=== PATIENT | female | born 1995 | race Caucasian/White ===

== ENCOUNTER 2025-04-11 14:24 | Outpatient (CLI) | payer BC, SELFPAY ==
--- OUTSIDE RECORDS SUMMARY | 2024-12-27 08:45 | XMS_ITS ---
Author Organization [facility] [employer] [facility] Address [address] [facility] [address] [facility] 201 [place] [address] Care Team Providers Care Wheelchair Rental Clerk Name Role Phone OmayraVenturaAnna Unavailable [phone] REASON FOR VISIT follow-up, R/S from 12/20 Social History Sex Assigned At : Social History Observation Description Sex Assigned At Female Encounters Encounter Location Date Provider Diagnosis [facility] [employer] [place] [id number] [facility] [address] [facility] 201 [place] [address] 12/27/2024 Anna Cutler Plan Of Treatment Next Appt Details Provider Name:Anna lemon, 06/29/2025 08:00:00 AM, [address], [facility] [address], [place], [address], Progress Notes * HERMINIO CHRISTIAN KDOB:[birth year] (30 yo F)Acc No.[id number]:12/27/2024 Patient: HERMINIO MIRELES Provider: Edison Cutler :1995 A ge:29 Y S ex:Female Date:12/27/2024 Address:[address] [place], [place] [id number] Subjective: * Chief Complaints: * f ollow-up, R/S from 12/20 * Electronic signature of Wong Cutler on 04/11/2025 at 02:45 PM MORTAR WORKER Sign off status: Pending * Provider: Edison Cutler Date: 0 12/27/2024 Generated for Sacha chavira/Faxing/eTransmitting on: 1 02:45 PM MORTAR WORKER
--- OUTSIDE RECORDS SUMMARY | 2025-01-31 03:15 | XMS_ITS ---
Author Organization [facility] Address [facility] 162 [facility] 201 [place] [address] Care Team Providers Care Community Health Nursing Director Name Role Phone OmayraVenturaAnna Unavailable [phone] REASON FOR VISIT 1 month f/u Social History Sex Assigned At : Social History Observation Description Sex Assigned At Female Encounters Encounter Location Date Provider Diagnosis [facility] [employer] [address] [facility] 201 [place] [address] 01/31/2025 Anna Cutler Plan Of Treatment Next Appt Details Provider Name:Anna lemon, 06/29/2025 08:00:00 AM, [address], [facility] [address], [place], [address], Progress Notes * HERMINIO CHRISTIAN KDOB:[birth year] (30 yo F)Acc No.[id number]:01/31/2025 Patient: HERMINIO MIRELES Provider: Edison Cutler :1995 A ge:29 Y S ex:Female Date:01/31/2025 Address:[address] [place], [place] [id number] Subjective: * Chief Complaints: * 1 month f/u Billing Information: * Procedure Codes: * Electronic signature of Wong Cutler on 04/11/2025 at 02:45 PM BAG MENDER Sign off status: Pending * Provider: Edison Cutler Date: Generated for Sacha chavira/Kun/eTariadnasmitting on: 02:45 PM BAG MENDER
--- OUTSIDE RECORDS SUMMARY | 2025-02-04 09:45 | XMS_ITS ---
Author Organization [facility] [employer] [facility] Address [facility] [address] [facility] 201 [place] [address] Care Team Providers Care Therapeutic Recreation Assistant Name Role Phone OmayraVenturaAnna Unavailable [phone] REASON FOR VISIT 1 month f/u Social History Sex Assigned At : Social History Observation Description Sex Assigned At Female Encounters Encounter Location Date Provider Diagnosis [facility] [employer] [address] [facility] 201 [place] [address] 02/04/2025 Anna Cutler Plan Of Treatment Next Appt Details Provider Name:Anna lemon, 06/29/2025 08:00:00 AM, [address], [facility] [address], [place], [address], Progress Notes * HERMINIO CHRISTIAN KDOB:[birth year] (30 yo F)Acc No.[id number]:02/04/2025 Patient: HERMINIO MIRELES Provider: Edison Cutler :1995 A ge:29 Y S ex:Female Date:02/04/2025 Address:[address] [place], [place] [phone] Subjective: * Chief Complaints: * 1 month f/u Billing Information: * Procedure Codes: * Electronic signature of Wong Cutler on 04/11/2025 at 02:45 PM PRENATAL NURSE Sign off status: Pending * Provider: Edison Cutler Date: Generated for Sacha chavira/Kun/eTariadnasmitting on: 02:45 PM PRENATAL NURSE
[2025-04-11] VITALS (22 sets, daily range): BP systolic 134–163; BP diastolic 84–99; PULSE 85–117; TEMP 36.7; O2SAT 100
--- OUTSIDE RECORDS SUMMARY | 2025-04-11 14:46 | XMS_ITS | Patient Health Record ---
Author Organization [facility] Address [address] [facility] [address] [place] [address] Care Team Providers Care Lead Javascript Engineer Name Role Phone Anna Cutler Unavailable [phone] Allergies No Known Allergies Results Component Value Reference Range Notes UDT Reviewed date:11/25/2024 06:33:48 PM Interpretation: Performing Lab: Notes/Report: Amphetamine (AMP) n 0 - 1000 ng/ml Buprenorphine (BUP) n 0 - 10 ng/ml Oxazepam (BZO) n 0 - 300 ng/ml Cocaine (JAYDE) n 0 - 300 ng/ml Methamphetamine (mAMP) n 0 - 300 ng/ml Methylenedioxymethamphetamine (MDMA) n 0 - 500 ng/ml Morphine (MOP) n 0 - 25 ng/ml Methadone (MTD) n 0 - 300 ng/ml Oxycodone (OXY) n 0 - 300 ng/ml THC y 0 - 50 ng/ml x n 0 - 1000 ng/ml x n 0 - 1000 ng/ml x n 0 - 300 ng/ml x n 0 - 300 ng/ml Reason For Referral No Information Medications Medication SIG (Take, Route, Frequency, Duration) Notes Start Date End Date Status lamoTRIgine 100 MG Tablet 1 tablet Oral Once a day; Duration: 30 days 03/30/2025 Active Sertraline HCl 100 MG Tablet 1 tablet Oral Once a day; Duration: 30 days 03/30/2025 Active Immunizations Vaccine Route Administration Date Status Commmelody freeman Pfizer Biontech Covid-19 Vac cine 2nd dose Unknown 08/31/2020 Administered Pfizer Biontech Covid-19 Vac cine 2nd dose Unknown 09/21/2020 Administered COVID-19 (SARS-COV-2) vaccin e, unspecified Unknown 04/06/2021 Administered Social History Tobacco Use: Social History Observation Description Date Details (start date - stop date) Former Smoker NA - NA Sex Assigned At : Social History Observation Description Sex Assigned At Female Social History Miscellaneous: Social Info Question Answer Notes Advance Care Planning Are you your own decision-maker Yes Do you have Power of Multiple Tube Winding Machine Operator for Health or [facility] yoshi? No Safety issues: Do you feel safe at home? Yes Are there any firearms in the house? No Household: Social Info Question Answer Notes Household Marital status: Number of adults in household: 2 Drug/Alcohol: Social Info Question Answer Notes Drugs Have you used drugs other than those for medical reasons in the past 12 months? Yes Marijuana? Yes Caffeine Intake: 1-2 cups per day Tobacco Use: Social Info Question Answer Notes Tobacco Control (Standard) Tobacco use: Former smoker Additional Findings: Tobacco user e-cigarette Additional Details Category Social Info Options Details Miscellaneous: Occupation: career counse rafael at [employer] Social History Migrated Social History Alcohol Intake: Occasional 06/18/2021,Tobacco Years: Current every day smoker 06/18/2021,Smoking Status: 2 06/02/2023 Drug/Alcohol: Do you smoke marijuana? Yes Do you drink alcohol? Occasional ly Section Notes: Social History Substance Use Do you or have you ever smoked tobacco?: Current every day smoker How many years have you smoked tobacco?: 2 At what age did you start smoking tobacco?: 24 How much tobacco do you smoke?: None Do you or have you ever used any other forms of tobacco or nicotine?: Yes Do you or have you ever used e-cigarettes or vape?: Current user of electronic cigarettes What was the date of your most recent tobacco screening?: 06/02/2023 Has tobacco cessation counseling been provided?: No On what date was tobacco cessation counseling provided?: 03/18/2022 What is your level of alcohol consumption?: Occasional How many years have you consumed alcohol?: 3 Have you ever been counseled for unhealthy alcohol use?: No If you are , what was your level of alcohol consumption prior to ?: None Do you use any illicit or recreational drugs?: Yes Which illicit or recreational drugs have you used?: Marijuana How many years have you used illicit or recreational drugs?: 3 Have you used IV drugs?: No What is your level of caffeine consumption?: Heavy Education and Occupation What is the highest grade or level of school you have completed or the highest degree you have received?: Master's degree (e.g., MA, MS, Kanika, MEd, 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, [employer]) Are you currently employed?: Yes Who is your employer?: [employer] Marriage and Sexuality What is your relationship status?: Domestic partner Are you sexually active?: Yes Do you use protection during sex?: No How many children do you have?: 0 Home and Environment Are you a caregiver?: No What type of child support specialist do you use?: None Do you have any pets?: Yes (Notes: 1 cat) Do you have smoke and carbon monoxide detectors in your home?: Yes Are you passively exposed to smoke?: No Are there any smokers in your house?: No Are there any guns present in your home?: No Diet and Exercise What type of diet are you following?: Regular What is your exercise level?: Occasional How many days of moderate to strenuous exercise, like a brisk walk, did you do in the last 7 days?: 2 On those days that you engage in moderate to strenuous exercise, how many minutes, on average, do you exercise?: 60 Lifestyle Do you feel stressed (tense, restless, nervous, or anxious, or unable to sleep at night)?: Very much Do you use your seat belt or car seat routinely?: Yes Advance Directive Do you have an advance directive?: No Do you have a medical power of assistant attorney general?: No Public Health and Travel Have you been to an area known to be high risk for COVID-19?: No Activities of Daily Living Are you able to care for yourself?: Yes Are you blind or do you have difficulty seeing?: No Are you deaf or do you have serious difficulty hearing? : No Do you have difficulty concentrating, remembering or making decisions?: Yes Do you have difficulty walking or climbing stairs?: No Do you have difficulty dressing or bathing?: No Do you have difficulty doing errands alone?: No Are you able to walk?: Yes: walks without restrictions Do you have transportation difficulties?: Yes Gender Identity and LGBTQ Identity Gender identity: Identifies as Female Assigned sex at : Female Pronouns: she/her First name used: Isabella Sexual orientation: Straight or heterosexual Social History Substance Use Do you or have you ever smoked tobacco?: Current every day smoker How many years have you smoked tobacco?: 2 At what age did you start smoking tobacco?: 24 How much tobacco do you smoke?: None Do you or have you ever used any other forms of tobacco or nicotine?: Yes Do you or have you ever used e-cigarettes or vape?: Current user of electronic cigarettes What was the date of your most recent tobacco screening?: 02/02/24, just vaping Has tobacco cessation counseling been provided?: No On what date was tobacco cessation counseling provided?: 02/02/24 What is your level of alcohol consumption?: Occasional How many years have you consumed alcohol?: 3 Have you ever been counseled for unhealthy alcohol use?: No If you are , what was your level of alcohol consumption prior to ?: None Do you use any illicit or recreational drugs?: Yes Which illicit or recreational drugs have you used?: Marijuana How many years have you used illicit or recreational drugs?: 3 Have you used IV drugs?: No What is your level of caffeine consumption?: Heavy Education and Occupation What is the highest grade or level of school you have completed or the highest degree you have received?: Master's degree (e.g., MA, MS, Kanika, MEd, 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, [employer]) Are you currently employed?: Yes Who is your employer?: [employer] Marriage and Sexuality What is your relationship status?: Domestic partner Are you sexually active?: Yes Do you use protection during sex?: No How many children do you have?: 0 Home and Environment Are you a caregiver?: No Do you have any pets?: Yes (Notes: 1 cat) Do you have smoke and carbon monoxide detectors in your home?: Yes Diet and Exercise What type of diet are you following?: Regular What is your exercise level?: Occasional How many days of moderate to strenuous exercise, like a brisk walk, did you do in the last 7 days?: 2 On those days that you engage in moderate to strenuous exercise, how many minutes, on average, do you exercise?: 60 Advance Directive Do you have an advance directive?: No Do you have a medical power of assistant attorney general?: No Activities of Daily Living Are you able to care for yourself?: Yes Gender Identity and LGBTQ Identity Gender identity: Identifies as Female Assigned sex at : Female Pronouns: she/her First name used: Isabella Sexual orientation: Straight or heterosexual Problems Problem Type SNOMED Code ICD Code Onset Dates Problem Status W/U Status Risk Notes Problem Recurrent major depression in full remission (73093569) Major depressive disorder, recurrent, in full remission (F33.42) Active confirmed Problem Generalized anxiety disorder (53426611) Generalized anxiety disorder (F41.1) 4 Active confirmed Problem Insomnia disorder related to another mental disorder (87460903) Insomnia due to other mental disorder (F51.05) 4 Active confirmed Problem Obsessive-compul sive disorder (840404649) Obsessive-compu lsive disorder, unspecified (F42.9) 4 Active confirmed Problem Nondependent cannabis abuse (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) Marijuana use (F12.90) Active confirmed Problem Tobacco use (676399262) Nicotine use (Z72.0) Active confirmed Problem Second trimester (54380657) Second trimester (Z34.92) Active confirmed Vital Signs Heart Rate 83 /min 01/10/2025 Height-cm 160.02 cm 03/30/2025 Blood pressure diastolic 78 mm Hg 03/30/2025 Weight-kg 55.79 kg 03/30/2025 Height 63 in 03/30/2025 Blood pressure systolic 128 mm Hg 03/30/2025 Weight 123 lbs 03/30/2025 BMI 21.79 kg/m2 03/30/2025 Encounters Encounter Location Date Provider Diagnosis [facility] [place] [address] [address] [facility] [address] [address] 05/31/2024 Anna Cutler Obsessive-compulsive disorder, unspecified F42.9 ; Major depressive disorder, recurrent, in full remission F33.42 ; Generalized anxiety disorder F41.1 and Insomnia due to other mental disorder F51.05 [facility] [address] [address] 08/23/2024 Anna Cutler [facility] [place] [address] [address] 08/30/2024 Anna Cutler Generalized anxiety disorder F41.1 ; Obsessive-compulsive disorder, unspecified F42.9 ; Major depressive disorder, recurrent, in full remission F33.42 ; Insomnia due to other mental disorder F51.05 ; Marijuana use F12.90 ; Nicotine use Z72.0 ; Negative depression screening Z13.31 and Encounter for screening for cardiovascular disorders Z13.6 [facility] [address] [place] [address] [place] [address] 11/22/2024 Annasundeep Cutler Generalized anxiety disorder F41.1 ; Major depressive disorder, recurrent, in full remission F33.42 ; Obsessive-compulsive disorder, unspecified F42.9 ; Less than 8 weeks gestation of Z3A.01 and Insomnia due to other mental disorder F51.05 [facility] [facility] [address] [place] [address] 12/20/2024 Annasundeep Cutler [facility] [address] [place] [address] [place] [address] 01/10/2025 Anna Cesarjagjit Major depressive disorder, recurrent, in full remission F33.42 ; Obsessive-compulsive disorder, unspecified F42.9 ; Insomnia due to other mental disorder F51.05 ; Generalized anxiety disorder F41.1 and First trimester Z34.91 [facility] [facility] [address] [place] [address] 03/30/2025 Anna Cutler Major depressive disorder, recurrent, in full remission F33.42 ; Obsessive-compulsive disorder, unspecified F42.9 ; Generalized anxiety disorder F41.1 ; Second trimester Z34.92 and Insomnia due to other mental disorder F51.05 Assessments Encounter Date Diagnosis (ICD Code) Assessment Notes Treatment Notes Treatment Clinical Notes Section Notes 05/31/2024 Obsessive-compuls evon disorder, unspecified (ICD-10 - F42.9) Anxiety - Mild anxiety related to work and social media - Sertraline 250 mg daily effective Plan: - Continue sertraline 250 mg daily - Encourage stress management techniques - Consider limiting social media exposure Mood stability - Good overall mood, no depression - Lamotrigine 100 mg daily effective Plan: - Continue lamotrigine 100 mg daily - Monitor mood stability during follow-ups Sleep - Satisfactory sleep with occasional trazodone use Plan: - Continue trazodone 50mg, take 1/2 to 1 tablet at bedtime - Encourage good sleep hygiene Substance use - Daily coffee, occasional alcohol, vaping, and marijuana use Plan: - Monitor substance use - Consider reducing substances that may affect anxiety or sleep - Follow-up appointment in 3-4 months, sooner if concerns arise 08/30/2024 Generalized anxiety disorder (ICD-10 - F41.1) 08/30/2024 Obsessive-compuls evon disorder, unspecified (ICD-10 - F42.9) 11/22/2024 Major depressive disorder, recurrent, in full remission (ICD-10 - F33.42) 11/22/2024 Generalized anxiety disorder (ICD-10 - F41.1) 01/10/2025 Major depressive disorder, recurrent, in full remission (ICD-10 - F33.42) 01/10/2025 Obsessive-compuls evon disorder, unspecified (ICD-10 - F42.9) 03/30/2025 Major depressive disorder, recurrent, in full remission (ICD-10 - F33.42) 03/30/2025 Obsessive-compuls evon disorder, unspecified (ICD-10 - F42.9) 03/30/2025 Generalized anxiety disorder (ICD-10 - F41.1) 01/10/2025 Insomnia due to other mental disorder (ICD-10 - F51.05) 11/22/2024 Obsessive-compuls evon disorder, unspecified (ICD-10 - F42.9) 08/30/2024 Major depressive disorder, recurrent, in full remission (ICD-10 - F33.42) 05/31/2024 Major depressive disorder, recurrent, in full remission (ICD-10 - F33.42) Anxiety - Mild anxiety related to work and social media - Sertraline 250 mg daily effective Plan: - Continue sertraline 250 mg daily - Encourage stress management techniques - Consider limiting social media exposure Mood stability - Good overall mood, no depression - Lamotrigine 100 mg daily effective Plan: - Continue lamotrigine 100 mg daily - Monitor mood stability during follow-ups Sleep - Satisfactory sleep with occasional trazodone use Plan: - Continue trazodone 50mg, take 1/2 to 1 tablet at bedtime - Encourage good sleep hygiene Substance use - Daily coffee, occasional alcohol, vaping, and marijuana use Plan: - Monitor substance use - Consider reducing substances that may affect anxiety or sleep - Follow-up appointment in 3-4 months, sooner if concerns arise 05/31/2024 Generalized anxiety disorder (ICD-10 - F41.1) Anxiety - Mild anxiety related to work and social media - Sertraline 250 mg daily effective Plan: - Continue sertraline 250 mg daily - Encourage stress management techniques - Consider limiting social media exposure Mood stability - Good overall mood, no depression - Lamotrigine 100 mg daily effective Plan: - Continue lamotrigine 100 mg daily - Monitor mood stability during follow-ups Sleep - Satisfactory sleep with occasional trazodone use Plan: - Continue trazodone 50mg, take 1/2 to 1 tablet at bedtime - Encourage good sleep hygiene Substance use - Daily coffee, occasional alcohol, vaping, and marijuana use Plan: - Monitor substance use - Consider reducing substances that may affect anxiety or sleep - Follow-up appointment in 3-4 months, sooner if concerns arise 08/30/2024 Insomnia due to other mental disorder (ICD-10 - F51.05) 11/22/2024 Less than 8 weeks gestation of (ICD-10 - Z3A.01) 01/10/2025 Generalized anxiety disorder (ICD-10 - F41.1) 03/30/2025 Second trimester (ICD-10 - Z34.92) 03/30/2025 Insomnia due to other mental disorder (ICD-10 - F51.05) 01/10/2025 First trimester (ICD-10 - Z34.91) 11/22/2024 Insomnia due to other mental disorder (ICD-10 - F51.05) 08/30/2024 Marijuana use (ICD-10 - F12.90) 05/31/2024 Insomnia due to other mental disorder (ICD-10 - F51.05) Anxiety - Mild anxiety related to work and social media - Sertraline 250 mg daily effective Plan: - Continue sertraline 250 mg daily - Encourage stress management techniques - Consider limiting social media exposure Mood stability - Good overall mood, no depression - Lamotrigine 100 mg daily effective Plan: - Continue lamotrigine 100 mg daily - Monitor mood stability during follow-ups Sleep - Satisfactory sleep with occasional trazodone use Plan: - Continue trazodone 50mg, take 1/2 to 1 tablet at bedtime - Encourage good sleep hygiene Substance use - Daily coffee, occasional alcohol, vaping, and marijuana use Plan: - Monitor substance use - Consider reducing substances that may affect anxiety or sleep - Follow-up appointment in 3-4 months, sooner if concerns arise 08/30/2024 Nicotine use (ICD-10 - Z72.0) 08/30/2024 Negative depression screening (ICD-10 - Z13.31) 08/30/2024 Encounter for screening for cardiovascular disorders (ICD-10 - Z13.6) 08/30/2024 Vipul Christian, female, presents for follow-up of depression, anxiety, and obsessive-compuls evon disorder (OCD), reporting good mood control and reduced anxiety with current medication regimen. Major Depressive Disorder Assessment: Patient reports depression has been well-controlled with lamotrigine 100 mg. She denies any current suicidal thoughts. Mood has been stable, and she notes improved ability to manage stress, particularly related to travel plans which would have previously caused significant distress. Plan: - Continue lamotrigine 100 mg daily Generalized Anxiety Disorder Assessment: Patient reports anxiety is well-controlled. She denies experiencing panic attacks and states anxiety has not been problematic recently. She demonstrates improved ability to manage potentially stressful situations, such as traveling alone for training. Plan: - Continue sertraline 100 mg, 2.5 tablets daily Obsessive-Compuls evon Disorder Assessment: Patient reports OCD symptoms, primarily hand washing, are currently well-controlled. She notes that symptoms typically improve during summer months but worsen during cold season, leading to cracked hands. Plan: - Continue current treatment - Follow up in 3 months (November) to reassess symptoms, particularly in anticipation of cold season Insomnia Assessment: Patient reports occasional difficulty falling asleep but states sleep disturbances are generally well-managed with as-needed trazodone. Plan: - Continue trazodone 50 mg at bedtime as needed for sleep Substance Use Assessment: Patient reports vaping, social alcohol use, and occasional cannabis use on weekends. She denies other drug use. Caffeine intake is reported as low, with one coffee per day. Plan: - Continue to monitor substance use at follow-up appointments 11/22/2024 Vipul Christian, a patient at 6 weeks gestation, presents for medication management of depression, anxiety, and possible bipolar disorder. Medication management in Assessment: Patient is currently on sertraline 250 mg daily (2.5 tablets) for depression, anxiety, and OCD tendencies. She is also taking lamotrigine for mood stabilization due to family history of bipolar disorder and anger issues when initially starting sertraline. Trazodone was previously prescribed for sleep but has not been used recently. Patient reports good mood and anxiety control with current regimen. Given the new , medication adjustments are warranted to minimize exposure while maintaining symptom management. Plan: - Decrease sertraline to 200 mg PO daily - Continue lamotrigine - Discontinue trazodone - Follow up in 4 weeks to reassess medication efficacy and tolerability - Patient to inform provider of any feedback from OB appointment on 12/07/2024 Assessment: Patient reports recent discovery of , estimated at 6 weeks gestation based on jairo calculation. First OB appointment scheduled for 12/07/2024. Patient has made appropriate lifestyle changes, including switching to decaf coffee and abstaining from alcohol and drug use. Plan: - Attend scheduled OB appointment on 12/07/2024 - Continue abstinence from alcohol, drugs, and smoking - Maintain decaf coffee consumption Medical Decision Making Isabella Christian is a patient at 6 weeks gestation with a history of depression, anxiety, and OCD, currently stable on sertraline and lamotrigine. The patient's mood and anxiety have been well-controlled, with only minor anxiety reported during the initial discovery of . Given the , medication adjustment is warranted. The decision to taper sertraline first, rather than lamotrigine, is based on the higher dose of sertraline and its potential impact on the developing fetus. The goal is to reduce sertraline to 200mg daily and reassess. The lamotrigine, initially added due to family history of bipolar disorder and mood instability with sertraline alone, will be evaluated for potential tapering after the sertraline adjustment. This approach balances the need for mood stabilization with minimizing medication exposure. The patient's history of smoking cessation, alcohol abstinence, and switch to decaf coffee demonstrate positive health behaviors during . 01/10/2025 Other Isabella Christian, female, 11 weeks , with history of OCD and anxiety, presenting for routine follow-up. Depression Assessment: Patient reports mood as good as it can be. Denies depresion or suicidal thoughts. Mood appears stable on current medication regimen. Plan: - Continue lamotrigine 100 mg daily - Decrease sertraline to 1.5 tablets daily - Monitor for any changes in mood or anxiety symptoms Anxiety and Obsessive-Compuls evon Disorder (OCD) Assessment: Patient reports OCD tendencies have been good recently, despite a brief illness a couple of weeks ago which mildly exacerbated symptoms. Overall, symptoms appear to be well-controlled on current medication regimen. Plan: - Continue current medication management as outlined Assessment: Patient is 11 weeks , confirmed by recent OB checkup. Reports frequent urination affecting sleep and increased appetite. Experiences occasional brief nausea. OB reports everything sounded good during recent checkup. Plan: - Continue care with OB - Monitor for -related symptoms Sleep Disturbance Assessment: Patient reports sleep disturbance primarily due to frequent urination related to . No difficulty falling asleep reported. Plan: - Monitor sleep patterns - No specific interventions at this time as disturbance is -related Medical Decision Making Isabella Christian is a female at 11 weeks gestation with a history of OCD, presenting for routine follow-up. The patient reports overall stable mood and well-controlled OCD symptoms, with no significant anxiety or suicidal ideation. Sleep disturbances are attributed to -related frequent urination rather than psychiatric factors. Recent OB checkup was reassuring with no concerns raised about current psychiatric medications. Given the patient's stable psychiatric status and desire to potentially reduce medication, a modest dose reduction in sertraline from two tablets to one and a half tablets daily was agreed upon. This decision balances the need for continued symptom management with the goal of minimizing medication exposure during . The gradual nature of this reduction aims to mitigate the risk of symptom recurrence or withdrawal effects. 03/30/2025 Other 22-week female with history of anxiety, OCD, and major depressive disorder in remission, currently doing well on sertraline and lamotrigine with desire to reduce sertraline dose. Anxiety and OCDAssessment: Patient is currently stable on sertraline 150 mg daily (1.5 tablets) with good symptom control. She reports feeling good mentally and mood-kennedy, without excessive anxiety or feeling overwhelmed. No suicidal ideation present. Patient expressed interest in reducing medication dose while maintaining stability.Plan:- Reduce sertraline from 150 mg daily (1.5 tablets) to 100 mg daily (1 tablet)- Patient instructed to return to 150 mg daily and contact provider if mood or anxiety changes occur- 30-day supply with 2 refills prescribed to [facility] Major depressive disorder in remissionAssessme nt: Patient remains stable on lamotrigine 100 mg daily with good mood control. No depressive symptoms reported and patient describes feeling good overall.Plan:- Continue lamotrigine 100 mg daily at 22 weeksAssessment: Patient is 22 weeks with a girl, progressing well through second trimester. Reports minimal -related symptoms, no morning sickness, good appetite, and adequate energy levels. Baby is growing at average rate. Some discomfort with sleep positioning due to weight changes. OB provider is aware of psychiatric medications. Patient experiencing some anxiety about delivery but overall doing well.Plan:- Continue care with OB- Maintain current psychiatric medications as evidence supports safety during Follow-up appointment in approximately 12 weeks, ideally around 36 weeks gestation if schedule permits, available Wednesdays only. If unable to schedule during third trimester, plan follow-up. Medical Decision MakingIsabella Christian is a female at 22 weeks gestation presenting for routine psychiatric follow-up during . The patient reports stable mood and anxiety symptoms on current regimen of sertraline and lamotrigine, with no concerning psychiatric symptoms including suicidal ideation. Given her stable clinical presentation and expressed desire to minimize medication exposure during , the decision was made to reduce sertraline from 1.5 tablets to 1 tablet daily while maintaining lamotrigine at current dose. This approach balances the need for psychiatric stability with safety considerations, as both medications have established safety profiles in and the patient's OB provider is aware of the psychiatric medication regimen. The patient's stable mood, adequate sleep, and absence of anxiety symptoms support this conservative medication adjustment approach. 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
[2025-04-11 15:28] LABS: Add Urine Microscopic? YES; Appearance Urine Clear (Clear); Glucose Urine UA Negative (Negative); Leukocyte Esterase Ur Trace LEU/UL (Negative); Nitrate Urine Negative (Negative); Non Pathogenic Casts 0-2; Specific Grav Ur 1.007 (1.001-1.035); Total Protein Urine Random 14 mg/dL; Ur Ttl Prot Creatinine Ratio 0.51 mg/mg (0-0.20)
[2025-04-11 15:41] LABS: Hematocrit 40.1 % (37.0-47.0); Hemoglobin 13.7 g/dL (12.0-15.0); Immature Granulocyte Percent A 1.1 % (0-0.5); Lymphocytes Absolute Auto 2.41 K/mm3 (0.9-3.2); Mean Corpuscular HGB Conc 34.2 g/dl (32-36); Mean Corpuscular Hemoglobin 31.1 pg (26-34); Mean Corpuscular Volume 90.9 fl (80-100); Nucleated Red Blood Cells Absolute Auto 0.000 K/mm3 (0.0-0.012); Nucleated Red Blood Cells Perc 0.0 % (0.0-0.2); Platelet Count Result 266 k/mm3 (150-375); Red Blood Count 4.41 M/mm3 (4.2-5.4); White Blood Count 14.4 K/mm3 (4.5-10.0)
[2025-04-11 15:54] LABS: Alanine Aminotransferase 17 U/L (6-35); Albumin Level 3.6 g/dL (3.5-5.1); Alkaline Phosphatase 107 U/L (38-126); Anion Gap 6 mmol/L (4-12); Aspartate Amino Transferase 22 U/L (14-36); Bilirubin,Total 0.5 mg/dL (0.2-1.3); Blood Urea Nitrogen 7 mg/dL (7-17); Calcium 8.9 mg/dL (8.4-10.2); Carbon Dioxide 23 mmol/L (22-30); Chloride 107 mmol/L (98-107); Estimated Glomerular Filt Rate > 60; Glucose 80 mg/dL (65-110); Potassium 3.4 mmol/L (3.4-5.0); Sodium 136 mmol/L (137-145); Total Protein 7.1 g/dL (6.3-8.2); Uric Acid 3.3 mg/dL (2.5-7.5)
--- NOTE | 2025-04-11 16:10 | PC.NURSE ---
This RN called Dr. Hauser. Informed of elevated BPs, lab results, and FHT. states pt may go home at this time and complete a 24 h urine specimen to be completed. RN repeated orders back to confirm.
== END 2025-04-11 16:28 | disposition home or self-care (01) ==
LOC: ANHOBOP 14:33 → ANHOBPP 14:39
PROVIDERS: Visit Provider Obstetrics & Gynecology
DX: O13.9 Gestational [pregnancy-induced] hypertension without significant proteinuria, unspecified trimester (principal); Z3A.00 Weeks of gestation of pregnancy not specified
CPT/HCPCS: 36415; 80053; 81001; 82570; 84156; 84550; 85025; 99199

== ENCOUNTER 2025-04-12 20:35 | Outpatient (NON) | payer BC, SELFPAY ==
--- OUTSIDE RECORDS SUMMARY | 2024-12-27 08:45 | XMS_ITS ---
Author Organization [facility] Address [address] [facility] [address] [facility] 201 [place] [address] Care Team Providers Care Hvac Refrigeration Technician Name Role Phone OmayraVenturaAnna Unavailable [phone] REASON FOR VISIT follow-up, R/S from 12/20 Social History Sex Assigned At : Social History Observation Description Sex Assigned At Female Encounters Encounter Location Date Provider Diagnosis [facility] [email or web address] [place] [address] [facility] [address] [facility] [address] [place] [address] 12/27/2024 Anna Cutler Plan Of Treatment Next Appt Details Provider Name:Anna lemon, 06/29/2025 08:00:00 AM, [address], [facility] [address], [place], [address], Progress Notes * HERMINIO CHRISTIAN KDOB:[birth year] (30 yo F)Acc No.[id number]:12/27/2024 Patient: HERMINIO MIRELES Provider: Edison Cutler :1995 A ge:29 Y S ex:Female Date:12/27/2024 Address:[address] [place], [place] [id number] Subjective: * Chief Complaints: * f ollow-up, R/S from 12/20 * Electronic signature of Wong Cutler on 04/12/2025 at 08:47 PM SIGNALS COLLECTION TECHNICIAN Sign off status: Pending * Provider: Edison Cutler Date: 0 12/27/2024 Generated for Sacha chavira/Faxing/eTransmitting on: 1 08:47 PM SIGNALS COLLECTION TECHNICIAN
--- OUTSIDE RECORDS SUMMARY | 2025-01-31 03:15 | XMS_ITS ---
Author Organization [facility] Address [facility]6 [facility] [address] [facility] 201 [place] [address] Care Team Providers Care Commercial Floor Covering Installer Name Role Phone OmayraVenturaAnna Unavailable [phone] REASON FOR VISIT 1 month f/u Social History Sex Assigned At : Social History Observation Description Sex Assigned At Female Encounters Encounter Location Date Provider Diagnosis [facility] [employer] [address] [facility] 201 [place] [address] 01/31/2025 Anna Cutler Plan Of Treatment Next Appt Details Provider Name:Anna lemon, 06/29/2025 08:00:00 AM, [address], [facility] [address], [place], [address], Progress Notes * HERMINIO CHRISTIAN KDOB:[birth year] (30 yo F)Acc No.[id number]:01/31/2025 Patient: HERMINIO MIRELES Provider: Edison Cutler :1995 A ge:29 Y S ex:Female Date:01/31/2025 Address:[address] [place], [place] [phone] Subjective: * Chief Complaints: * 1 month f/u Billing Information: * Procedure Codes: * Electronic signature of Wong Cutler on 04/12/2025 at 08:47 PM INFORMATICS MANAGER Sign off status: Pending * Provider: Edison Cutler Date: Generated for Sacha chavira/Kun/eTransmitting on: 08:47 PM INFORMATICS MANAGER
--- OUTSIDE RECORDS SUMMARY | 2025-02-04 09:45 | XMS_ITS ---
Author Organization [facility] [employer] [facility] Address [facility] 162 [facility] 201 [place] [address] Care Team Providers Care Supervisor Crack Off Name Role Phone OmayraVenturaAnna Unavailable [phone] REASON FOR VISIT 1 month f/u Social History Sex Assigned At : Social History Observation Description Sex Assigned At Female Encounters Encounter Location Date Provider Diagnosis [facility] [employer] [address] [facility] 201 [place] [address] 02/04/2025 Anna Cutler Plan Of Treatment Next Appt Details Provider Name:Anna lemon, 06/29/2025 08:00:00 AM, [address], [facility] [address], [place], [address], Progress Notes * HERMINIO CHRISTIAN KDOB:[birth year] (30 yo F)Acc No.[id number]:02/04/2025 Patient: HERMINIO MIRELES Provider: Edison Cutler :1995 A ge:29 Y S ex:Female Date:02/04/2025 Address:[address] [place], [place] [id number] Subjective: * Chief Complaints: * 1 month f/u Billing Information: * Procedure Codes: * Electronic signature of Wong Cutler on 04/12/2025 at 08:47 PM FEED HOUSE SUPERVISOR Sign off status: Pending * Provider: Edison Cutler Date: Generated for Sacha chavira/Kun/eTransmitting on: 08:47 PM FEED HOUSE SUPERVISOR
[2025-04-12 20:35] VITALS: BMI 23.1
--- OUTSIDE RECORDS SUMMARY | 2025-04-12 20:47 | XMS_ITS | Continuity of Care Document ---
Author Organization [facility] Address [address] [place] [address] Assessment No assessment recorded. Plan of Treatment Reminders Order Date Submit Date Provider Last Modified By Organization Details Last Modified Time Details Appointments None record ed. Lab None record ed. Referral None record ed. Procedures None record ed. Surgeries None record ed. Imaging None record ed. Medication Orders None record ed. Patient TargetsNo targets recorded. Patient InstructionsNo instructions recorded. Reason for Referral None Reported. Results Created Date Observation Date Name Description Value Unit Range Abnormal Flag Note LastModifiedBy Organization Detail LastModifiedTime 01/19/2001/18/2025 CULTU RE: URINE result report SEE RESULT S BELOW Test: Cultu re: Urine Speci men Sourc e: Urine - Clean Catch Speci men Type: Urine Speci men Date: 2024 1628 Resul t Date: 2024 0504 Resul t Statu s: Final resul t Abnor mal: No Resul ting Lab: [facility] [address] [facility] [address] Tel: CULTU RE ----- ----- ----- --- No growt h in 1 day (dete ction level of 10,00 0 colon ies / ml.) Not Available [facility] (Lab) [address], [place], [address], 01/24/2025 11:24:05 01/19/20 25 01/18/2025 IMAGE GUIDE D PAP, REFLE X HPV IF ASCUS ONLY image guided Pap, reflex HPV ASCUS only SEE RESULT S BELOW CASE REPOR T: Cytol ogy Gynec ologi yoshi Repor t Case: [id number] Autho bev barry Provi trang: Karolina Cates MD Colle cted: 01/18 1628 Order ing Locat ion: [place] Patho logy Recei nighat: 01/19 1117 First Sabine n: Sarah Fuentes , CT Speci men: Sabine marie Pap - Image d, Cervi x STATE MENT OF ADEQU ACY: Satis facto ry for evalu ation Trans forma tion zone compo nent prese nt ----- ----- ----- ----- ----- ----- ----- ----- ----- ----- ----- ----- ----- ----- ----- ----- ----- ---- FINAL DIAGN OSIS: Negat evon for Intra epith elial Gilles serrano or Lily louise (NIL) . Elect ursula gill by Sarah Fuentes , CT on 01/24 at 1021 CDT ----- ----- ----- ----- ----- ----- ----- ----- ----- ----- ----- ----- ----- ----- ----- ----- ----- ---- COMME NT: This speci men was revie wed by a Cytot echno logis t and/o r Patho logis t (as indic ated in this repor t) after evalu ation using the Thinp rep Imagi ng Syste m. CLINI YOSHI INFOR MATIO N: Menst rual Statu s: LMP (if appli cable ): Clini yoshi Histo ry/Pr eviou s Pap: Type of Neopl minnie (if appli cable ): Signi ficmatthew t Clini yoshi Findi ngs: Other Histo ry: Hormo roque (if appli cable ): PAP EDUCA HARVEY L NOTE: The Pap Test is a scree cynthia test with an inher ent false negat evon rate. Liqui d-bas ed sampl ing may decre ase, but will not elimi deon, false negat evon resul ts. A negat evon resul t does not precl ude the prese nce and/o r devel opmen t of disea se, since the prese nce of abnor mal cells in the sampl e depen ds on the locat ion of the lesio n and sampl ing techn ique. Ruby nued regul ar scree cynthia is the best metho d of cance r preve ntion . If repor claude cytol ogic findi ng do not corre late with physi yoshi and/o r histo rical findi ngs, furth er inves tigat ion is recom ekta d, as clini vicki warra nted. Not Available [facility] (Lab) [address], [place], [address], 01/24/2025 11:24:06 01/19/20 25 01/18/2025 US, obste tric, nucha l trans lucen cy No observ ation record ed. [email or web address] [place] [address] [facility] [address], [place], [address], 01/18/2025 18:02:50 01/19/20 25 01/18/2025 US, obste tric, nucha l trans lucen cy No observ ation record ed. [email or web address] [place] [address], [place], [address], 01/21/2025 01:48:00 03/15/20 25 03/15/2025 US, obste tric, 2nd or 3rd trime ster No observ ation record ed. [email or web address] [place] [address], [place], [address], 03/15/2025 17:55:23 03/15/20 25 03/15/2025 US, obste tric, 2nd or 3rd trime ster No observ ation record ed. ZACH T[place] [address], [place], [address], 03/19/2025 15:50:02 04/11/20 25 04/11/2025 US, obste tric, follo w-up No observ ation record ed. [email or web address] T[place] [address], [place], [address], 04/12/2025 13:39:34 04/11/20 25 04/11/2025 US, obste tric, follo w-up No observ ation record ed. [facility] [address], [place], [address], 04/11/2025 18:07:01 Result Notes None recorded. Problems Name Problem SNOMED Code Status Onset Date Resolution Date Notes Provider Name and Address Organization Details Recorded Time 70253553 Active 2024 Yvonne vernon, [facility] 16:35:50 Abnormal placenta affecting management of mother 58022002 Active 2024 serial growth US q4 weeks ALEJANDRO VILLASENOR MD [address], [place], [address], [facility] 17:11:51 growth restriction 81770878 Active 2024 Ubaldo Hauser MD [address], [place], [address], [facility] 16:32:09 Hypertensive disorder 51497474 Active 2024 Ubaldo Hauser MD [address], [place], [address], [facility] 16:32:19 Problem Notes None recorded. Procedures Surgical History Date Name Laterality Status Provider Name and Address Organization Details Recorded Time 01/18/2025 Date of Last Pap Smear completed Yvonne Hitchcock [facility] 01/18/2025 17:03:21 Imaging Results None recorded. Procedure Notes None recorded. Medical Equipment None Reported. Allergies No known drug allergies Medications Name Sig Start Date Stop Date Status Note LastModified by Organization Details LastModified Time sertraline 100 mg tablet TAKE 1.5 TABLETS (150 MG) BY MOUTH ONCE DAILY active Not Available Not Available No t Available Macrobid 100 mg capsule Take 1 capsule every 12 hours by oral route as directed for 7 days. 12/23 completed Not Available Not Available Not Available lamotrigine 100 mg tablet TAKE 1 TABLET BY MOUTH EVERY DAY FOR 90 DAYS active Not Available Not Available No t Available sertraline active Not Available Not Av ailable Not Available lamotrigine active Not Available Not A vailable Not Available 1 daily 2024 active Not Available Not Available Not Avai lable Vitals Date Recorded Body height Body mass index (BMI) Body weight Systolic And Diastolic Systolic And Diastolic Provider Name and Address Organization Details Last Updated DateTime 02/15/2025 161.29 cm 20.9 kg/m2 35754.08 g 133/97 mm[Hg] 135/89 mm[Hg] Yvonne Hitchcock [facility] 17:19:01 Social History Question Answer Notes LastModified by Organizat ion Details LastModified Time Tobacco Smoking Status Former Smoker Yvonne Hitchcock [facility] 01/18/2025 16:34:32 Do You Have An Advance Directive? No [email or web address] Information n ot available 12/07/2024 If You Are , What Was Your Level Of Alcohol Consumption Prior To ? None [email or web address] Information not available 12/07/2024 How Many Years Have You Consumed Alcohol? 6 Information not available 12/07/2024 Are You Blind Or Do You Have Difficulty Seeing? No [email or web address] Information n ot available 12/07/2024 What Is Your Level Of Caffeine Consumption? Heavy [email or web address] Information not available 12/07/2024 In The 14 Days Before Symptom Onset, Have You Had Close Contact With A Laboratory-confirm ed COVID-19 While That Case Was Ill? No Information n ot available 12/07/2024 In The 14 Days Before Symptom Onset, Have You Had Close Contact With A Person Who Is Under Investigation For COVID-19 While That Person Was Ill? No [email or web address] Information not available 12/07/2024 Have You Been To An Area Known To Be High Risk For COVID-19? No [email or web address] Information not available 12/07/2024 Are You Deaf Or Do You Have Serious Difficulty Hearing? No [email or web address] Information not available 12/07/2024 What Type Of Diet Are You Following? REGULAR Information n ot available 12/07/2024 What Is The Highest Grade Or Level Of School You Have Completed Or The Highest Degree You Have Received? [id number] Information not available 12/07/2024 Are There Any Guns Present In Your Home? No Information not available 12/07/2024 What Is Your Current Pack Years? 10packyears [email or web address] Information not available 12/07/2024 Have You Ever Been Counseled For Unhealthy Alcohol Use? No [email or web address] Information not available 12/07/2024 Do You Use Protection During Sex? No [email or web address] Information not available 12/07/2024 Do You Use Your Seat Belt Or Car Seat Routinely? Yes [email or web address] Information not available 12/07/2024 Are You Sexually Active? Yes Information not available 12/07/2024 Do You Have Smoke And Carbon Monoxide Detectors In Your Home? Yes [email or web address] Information not available 12/07/2024 At What Age Did You Start Smoking Tobacco? 20 [email or web address] Information not available 12/07/2024 How Much Tobacco Do You Smoke? 1 PPW [email or web address] Information not available 12/07/2024 Do You Use Sunscreen Routinely? Yes Information not available 12/07/2024 Has Tobacco Cessation Counseling Been Provided? No [email or web address] Information not available 12/07/2024 Have You Used IV Drugs? No [email or web address] Information not available 12/07/2024 Do You Have Difficulty Walking Or Climbing Stairs? No [email or web address] Information not available 12/07/2024 Sex: Unknown Functional Status Question Answer Note LastModified by Organizat ion Details LastModified Time Do you use any illicit or recreational drugs? No [email or web address] Information not available 12/07/2024 Do you or have you ever used any other forms of tobacco or nicotine? Yes [email or web address] Information not available 12/07/2024 What is your level of alcohol consumption? Occasional stopped while [email or web address] Information not available 01/18/2025 Do you or have you ever used smokeless tobacco? Never used smokeless tobacco [email or web address] Information not available 12/07/2024 Are you currently employed? Yes Information not available 12/07/2024 Are you able to walk independently without assistance or assistive devices? YESWOREST [email or web address] Information not available 12/07/2024 Are you able to care for yourself independently? 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 No [email or web address] Information not available 12/07/2024 Do you or have you ever used e-cigarettes or vape? Former user of electronic cigarettes Information not available 01/18/2025 What is your exercise level? Moderate Information not available 12/07/2024 Mental Status Question Answer Note LastModified by Organization D etails LastModified Time Do you feel stressed (tense, restless, nervous, or anxious, or unable to sleep at night)? [id number] [email or web address] Information not available 12/07/2024 Family History Relationship Description Onset Age of this Age Resolved Age Notes LastModified by Organization Details LastModified Time Mother Heart disease [email or web address] Not available 2024 14:25:05 Medical History Condition Response Anxiety Disorder Y Urinary Tract Infection Y Depression/ depression Y Gynecological History Statement/Question Response Abnormal Pap N Flow Moderate Date of LMP 10/04/2024 On BCP's at Conception? N N Was last menstrual period normal Y STIs/STDs N HPV Vaccine Y Duration of Flow (days) 4 Current Control Method Age at First Child 29 Are cycles usually normal Y Frequency of Cycle (Q days) 30 Sexually Active? Y Menses Monthly Y Age of first menstrual cycle 14 Date of Last Pap Smear 01/18/2025 Sexual Problems? N LMP Approximate N 11/15/2019 Obstetrics History GPAL:G 1 P 0 0 0 0 Past Encounters Encounter ID Performer Location Encounter Start Date Encounter Closed Date Diagnosis/Indication Diagnosis SNOMED-CT Code Diagnosis ICD10 Code Diagnosis IMO Codes Diagnosis Note [id number] ALEJANDRO VILLASENOR MD [place] [address],[facility] [place] [address] 01/18/2025 15:49:57 01/18/2025 16:32:46 screening 077310622 Z36.82 Z3A.12 [id number] ALEJANDRO VILLASENOR MD [place] [address],[place] [address] 01/18/2025 15:50:09 01/21/2025 08:55:16 Gynecologic examination 14364763 Z01.419 s reyna of fetus 05824932 Z34.90 [id number] ALEJANDRO VILLASENOR MD [place] [address],[place] [address] 02/15/2025 16:47:46 02/15/2025 17:54:08 Second trimester 90928870 Z34.02 [id number] Health Concerns Section Related Observation LastModified by Organization Detai ls LastModified Time None Recorded Concern Status LastModified by Organization Details LastModified Time None Recorded Payers Encounter Date Sequence Insurance Name Policy Number Policy Vargas Covered Member ID Vargas Member ID Guarantor Name 02/15/2025 1 [place] [id number] Isabella Riazmadhav [id number] Isabella Mellomadhav Notes Date Note Type Note Provider Name and Address Organization Details Recorded Time 02/15/2025 text/html Generic HPI TemplateReported by Patient ALEJANDRO VILLASENOR MD [address], [place], [address], [facility] 02/15/2025 17:43:41 OBGyn Episode Ob Episode Information Episode Created Date Number of Fetuses Patient Bloodtype Patient rh Status Prepregnancy Weight lbs Domestic Partner Domestic Partner Phone Father Name Poultry Sexer Status 01/19/20 25 1 O Positive Delfino Raines OPEN Fetus Data First Name Last Name Admitted to NICU Weight (g) Sex Living Outcome Pediatric Complications Fetus ID Race Codes Race Delivery Type [id number] Problems Problem Notes [facility] referral faxed 04/12 Problem Name Start Date End Date Resolution Snomed Code Not e Abnormal placenta affecting management of mother 03/18/2025 59177625 serial growth U S q4 weeks Hypertensive disorder 04/11/2025 1110151 3 growth restriction 04/11/2025 2203 3007 West Calculation Initial West Date Initial Exam Date Initial Exam Provider Initial Ultrasound Date Last Menstrual Period Date Ultra Sound Weeks Gestation 01/18/2025 12/07/2024 10/04/2024 6 Eighteen To Twenty Week West Update Ultra Sound Date Fundal Height At Umbil Quickening Date Ultra Sound Latest Weeks Gestation Final West Confirmed By Final West Confirmed Date Final West Date Ultra Sound Latest Days Gestation 03/15/20 25 20 [email or web address] 01/21/2025 08/02/19 26 1 Pre- Flowsheet Flowsheet Date 01/18/2025 Gloria Score Blood Edema Fundus Height Fundus Units Glucose Ketones Leukocytes Nitrite Labor Signs Protein Cervic Dilation Cervic Effacement Cervic Station Type Weight in lbs Pre/Post Dialysis Refused Weight 113.803361914845 BP Diastolic BP Location Tested BP Systolic BP Type 83 L arm 135 sitting Fetus Heart Rate Present A Present Fetus Movement Comments Patient presents to [facility] care. otherwise uncomplicated. No nausea or cramping. NT/NB wnl today, LR NIPT. New OB labs wnl. RTC 4 weeks for routine care. Flowsheet Date 02/15/2025 Gloria Score Blood Edema Fundus Height Fundus Units Glucose Ketones Leukocytes Nitrite Labor Signs Protein Cervic Dilation Cervic Effacement Cervic Station Type Weight in lbs Pre/Post Dialysis Refused Weight 120.604028188337 BP Diastolic BP Location Tested BP Systolic BP Type 97 L arm 133 sitting 89 R arm 135 sitting Fetus Heart Rate Present A 150 Fetus Movement A No Comments Doing well, no issues. Discu ssed anatomy US for next visit. RTC 4 weeks. Flowsheet Date 03/15/2025 Gloria Score Blood Edema Fundus Height Fundus Units Glucose Ketones Leukocytes Nitrite Labor Signs Protein Cervic Dilation Cervic Effacement Cervic Station Type Weight in lbs Pre/Post Dialysis Refused BP Diastolic BP Location Tested BP Systolic BP Type Fetus Heart Rate Present Fetus Movement Comments Flowsheet Date 03/15/2025 Gloria Score Blood Edema Fundus Height Fundus Units Glucose Ketones Leukocytes Nitrite Labor Signs Protein Cervic Dilation Cervic Effacement Cervic Station Type Weight in lbs Pre/Post Dialysis Refused Weight 123.321139658809 BP Diastolic BP Location Tested BP Systolic BP Type 107 L arm 125 sitting 92 L arm 143 sitting Fetus Heart Rate Present A Present Fetus Movement A Yes Comments Good movement. No cram ping or bleeding. Having a girl! Anatomy complete and normal today, EFW 51%. MCI, repeat growth Q4 weeks. BP elevated today, patient to check home BPs x2 weeks. RTC 4 weeks. Flowsheet Date 04/11/2025 Glorai Score Blood Edema Fundus Height Fundus Units Glucose Ketones Leukocytes Nitrite Labor Signs Protein Cervic Dilation Cervic Effacement Cervic Station Type Weight in lbs Pre/Post Dialysis Refused BP Diastolic BP Location Tested BP Systolic BP Type Fetus Heart Rate Present Fetus Movement Comments Flowsheet Date 04/11/2025 Gloria Score Blood Edema Fundus Height Fundus Units Glucose Ketones Leukocytes Nitrite Labor Signs Protein Cervic Dilation Cervic Effacement Cervic Station Type Weight in lbs Pre/Post Dialysis Refused 130.795018106692 BP Diastolic BP Location Tested BP Systolic BP Type 116 R arm 164 sitting 105 L arm 164 sitting 98 L arm 158 sitting Fetus Heart Rate Present Fetus Movement A Yes Comments This patient had severe rang e blood pressures. She also has growth restriction. She will be seen by MFM as soon as possible. She was sent to labor and delivery for monitoring and laboratory evaluation of her severe range blood pressures. Menstrual History Last Menstrual Date Menses Monthly On Bcp Conception Prior Menses Frequency Hcg Plus Date Menarche Onset Age 0610/04/2024 Delivery Information Delivery Date Delivery Type Labor Anesthesia Weeks Gestation Incision Type Labor Labor Length Hrs Delivered By Post Complications Tubal Sterilization Discharge Date Comments Discharge Information Feeding Method Contraceptive Method Maternal HG B and HCT Levels
--- OUTSIDE RECORDS SUMMARY | 2025-04-12 20:47 | XMS_ITS | Continuity of Care Document ---
Author Organization [facility] Address [address] [place] [address] [place] [address] Assessment No assessment recorded. Plan of Treatment Reminders Order Date Submit Date Provider Last Modified By Organization Details Last Modified Time Details Appointments None recorded. Lab drug screen, urine 2024 025 [facility], [address], [place], [address], 01:33:05 culture, urine [address] [facility] (Lab), [address] [place], [address], 5 11:24:05 pap, IG + reflex HPV if ASC-U - if positive HPV run subtyping 16,18/[address] [facility] (Lab), [address] [place], [address], 11:24:06 Referral None recorded. Procedures None recorded. Surgeries None recorded. Imaging None recorded. Medication Orders None recorded. Patient TargetsNo targets recorded. Patient InstructionsNo instructions [...] Resul ting Lab: [facility] [address] [facility] [address] [facility] [address] Tel: CULTU RE ----- ----- ----- --- No growt h in 1 day (dete ction level of 10,00 0 colon ies / ml.) Not Available [facility] (Lab) [address] [facility], [place], [address], 01/24/2025 11:24:05 01/19/20 25 01/18/2025 IMAGE GUIDE D PAP, REFLE X HPV IF ASCUS ONLY image guided Pap, reflex HPV ASCUS only SEE RESULT S BELOW CASE REPOR T: Cytol ogy Gynec ologi yoshi Repor t Case: [id number] Autho bev Provi trang: Karolina Cates MD Colle cted: 01/18 Order ing Locat ion: [place] Patho logy Recei nighat: 01/19 1117 First Scree n: Sarah Fuentes , CT Speci men: Hanselmelody marie Pap - Image d, Cervi x STATE MENT OF ADEQU ACY: Satis facto ry for evalu ation Trans forma tion zone compo nent prese nt ----- ----- ----- ----- ----- ----- ----- ----- ----- ----- ----- ----- ----- ----- ----- ----- ----- ---- FINAL DIAGN OSIS: Negat evon for Intra epith riccial Gilles serrano or Lily louise ([facility]) . Elect ursula nichols d by Sarah Fuentes , CT on 01/24 [...] Neopl minnie (if appli cable ): Signi fican t Clini yoshi Findi ngs: Other Histo [...] is recom ekta d, as clini vicki hannah nted. Not Available [facility] (Lab) [address], [place], [address], 01/24/2025 11:24:06 01/19/20 25 01/18/2025 US, obste tric, nucha l trans lucen cy No observ ation record ed. [email or web address] [facility] [address], [place], [address], 01/18/2025 18:02:50 01/19/20 25 01/18/2025 US, obste tric, nucha l trans lucen cy No observ ation record ed. T[address], [place], [address], 01/21/2025 01:48:00 03/15/20 25 03/15/2025 US, obste tric, 2nd or 3rd trime ster No observ ation record ed. [email or web address] [facility] [address], [place], [address], 03/15/2025 17:55:23 03/15/20 25 03/15/2025 US, obste tric, 2nd or 3rd trime ster No observ ation record ed. ZACH [facility] [address], [place], [address], 03/19/2025 15:50:02 04/11/20 25 04/11/2025 US, obste tric, follo w-up No observ ation record ed. [email or web address] [facility] [address], [place], [address], 04/12/2025 13:39:34 04/11/20 25 04/11/2025 US, obste tric, follo w-up No observ ation record ed. rae [facility] [address], [place], [address], 04/11/2025 18:07:01 Result Notes None recorded. Problems Name Problem SNOMED Code Status Onset Date Resolution Date Notes Provider Name and Address Organization Details Recorded Time 65656883 Active 2024 Yvonne vernon, [facility] 16:35:50 Abnormal placenta affecting management of mother 06056685 Active 2024 serial growth US q4 weeks ALEJANDRO VILLASENOR MD [address], [place], [address], [facility] 17:11:51 growth restriction 23444550 Active 2024 Ubaldo Hauser MD [address], [place], [address], [facility] 16:32:09 Hypertensive disorder 43819064 Active 2024 Ubaldo Hauser MD [address], [place], [address], [facility] 16:32:19 Problem Notes None recorded. Procedures Surgical History Date Name Laterality Status Provider Name and Address Organization Details Recorded Time 01/18/2025 Date of Last Pap Smear completed Yvonne Hitchcock [facility] 01/18/2025 17:03:21 Imaging Results None recorded. [...] index (BMI) Body weight Systolic And Diastolic Provider Name and Address Organization Details Last Updated DateTime 01/18/2025 161.29 cm 19.7 kg/m2 01749.94 g 135/83 mm[Hg] Yvonne Hitchcock [facility] 01/18/2025 16:31:53 Social History Question Answer Notes LastModified by Organizat ion Details LastModified Time Tobacco Smoking Status Former Smoker Yvonne vernon [facility] 01/18/2025 16:34:32 Do You Have An Advance Directive? No [email or web address] Information n ot available 12/07/2024 If You Are , What Was Your Level Of Alcohol Consumption Prior To ? None [email or web address] Information not available 12/07/2024 How Many Years Have You Consumed Alcohol? 6 [email or web address] Information not available 12/07/2024 Are You Blind Or Do You Have Difficulty Seeing? No Information n ot available 12/07/2024 What Is Your Level Of Caffeine Consumption? Heavy [email or web address] Information not available 12/07/2024 In The 14 Days Before Symptom Onset, Have You Had Close Contact With A Laboratory-confirm ed COVID-19 While That Case Was Ill? No [email or web address] Information n ot available 12/07/2024 In The 14 Days Before Symptom Onset, Have You Had Close Contact With A Person Who Is Under Investigation For COVID-19 While That Person Was Ill? No Information not available 12/07/2024 Have You Been To An Area Known To Be High Risk For COVID-19? No Information not available 12/07/2024 Are You Deaf Or Do You Have Serious Difficulty Hearing? No Information not available 12/07/2024 What Type Of Diet Are You Following? REGULAR Information n ot available 12/07/2024 What Is The Highest Grade Or Level Of School You Have Completed Or The Highest Degree You Have Received? KX01620-1 [email or web address] Information not available 12/07/2024 Are There Any Guns Present In Your Home? No [email or web address] Information not available 12/07/2024 What Is Your Current Pack Years? 10packyears [email or web address] Information not available 12/07/2024 Have You Ever Been Counseled For Unhealthy Alcohol Use? No [email or web address] Information not available 12/07/2024 Do You Use Protection During Sex? No [email or web address] Information not available 12/07/2024 Do You Use Your Seat Belt Or Car Seat Routinely? Yes [email or web address] Information not available 12/07/2024 Are You Sexually Active? Yes [email or web address] Information not available 12/07/2024 Do You Have Smoke And Carbon Monoxide Detectors In Your Home? Yes [email or web address] Information not available 12/07/2024 At What Age Did You Start Smoking Tobacco? 20 [email or web address] Information not available 12/07/2024 How Much Tobacco Do You Smoke? 1 PPW Information not available 12/07/2024 Do You Use Sunscreen Routinely? Yes Information not available 12/07/2024 Has Tobacco Cessation Counseling Been Provided? No [email or web address] Information not available 12/07/2024 Have You Used IV Drugs? No [email or web address] Information not available 12/07/2024 Do You Have Difficulty Walking Or Climbing Stairs? No Information not available 12/07/2024 Sex: Unknown Functional Status Question Answer Note LastModified by Organizat ion Details LastModified Time Do you use any illicit or recreational drugs? No Information not available 12/07/2024 Do you or have you ever used any other forms of tobacco or nicotine? Yes [email or web address] Information not available 12/07/2024 What is your level of alcohol consumption? Occasional stopped while [email or web address] Information not available 01/18/2025 Do you or have you ever used smokeless tobacco? Never used smokeless tobacco Information not available 12/07/2024 Are you currently employed? Yes Information not available 12/07/2024 Are you able to walk independently without assistance or assistive devices? YESWOREST [email or web address] Information not available 12/07/2024 Are you able to care for yourself independently? 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 No [email or web address] Information not available 12/07/2024 Do you or have you ever used e-cigarettes or vape? Former user of electronic cigarettes [email or web address] Information not available 01/18/2025 What is your exercise level? Moderate [email or web address] Information not available 12/07/2024 Mental Status Question Answer Note LastModified by Organization D etails LastModified Time Do you feel stressed (tense, restless, nervous, or anxious, or unable to sleep at night)? BP65593-2 [email or web address] Information not available 12/07/2024 Family History Relationship Description Onset Age of this Age Resolved Age Notes LastModified by Organization Details LastModified Time Mother Heart disease [email or web address] Not available 2024 14:25:05 Medical History Condition [...] ICD10 Code Diagnosis IMO Codes Diagnosis Note [id number] ALEJANDRO VILLASENOR MD [facility] [address] [address] 01/18/2025 15:49:57 01/18/2025 16:32:46 screening 562504049 Z36.82 Z3A.12 [id number] ALEJANDRO VILLASENOR MD [facility] [address] [address] 01/18/2025 15:50:09 01/21/2025 08:55:16 Gynecologic examination 56062530 Z01.419 s reyna of fetus 18151418 Z34.90 [id number] Health Concerns Section Related Observation LastModified by Organization Detai ls LastModified Time None Recorded Concern Status LastModified by Organization Details LastModified Time None Recorded Payers Encounter Date Sequence Insurance Name Policy Number Policy Avrgas Covered Member ID Vargas Member ID Guarantor Name 01/18/2025 1 [place] [id number] Isabella Raines [id number] Isabella Raines OBGyn Episode Ob Episode Information Episode Created Date Number of Fetuses Patient Bloodtype Patient rh Status Prepregnancy Weight lbs Domestic Partner Domestic Partner Phone Father Name Exhibit Technician Status 01/19/20 25 1 O Positive Delfino Raines OPEN Fetus Data First Name Last Name Admitted to NICU Weight (g) Sex Living Outcome Pediatric Complications Fetus ID Race Codes Race Delivery Type [id number] Problems Problem Notes [facility] referral faxed 04/12 Problem Name Start Date End Date Resolution Snomed Code Not e Abnormal placenta affecting management of mother 03/18/2025 63964487 serial growth U S q4 weeks Hypertensive disorder 04/11/2025 7647217 3 growth restriction 04/11/2025 [address] [...] Sound Latest Days Gestation 03/15/20 25 20 01/21/2025 08/02/19 26 1 Pre-jose manuel Flowsheet Flowsheet Date 01/18/2025 Gloria Score Blood Edema Fundus Height Fundus Units Glucose Ketones Leukocytes Nitrite Labor Signs Protein Cervic Dilation Cervic Effacement Cervic Station Type Weight in lbs Pre/Post Dialysis Refused Weight 113.006048418826 BP Diastolic BP Location Tested BP Systolic BP Type 83 L arm 135 sitting Fetus Heart Rate Present A Present Fetus Movement Comments Patient presents to [facility] care. otherwise uncomplicated. No nausea or cramping. NT/NB wnl today, LR NIPT. New OB labs wnl. RTC 4 weeks for routine care. Flowsheet Date 02/15/2025 Gloria Score Blood Edema Fundus Height Fundus Units Glucose Ketones Leukocytes Nitrite Labor Signs Protein Cervic Dilation Cervic Effacement Cervic Station Type Weight in lbs Pre/Post Dialysis Refused Weight 120.352948245506 BP Diastolic BP Location Tested BP Systolic [...] Weight in lbs Pre/Post Dialysis Refused Weight 123.399807654592 BP Diastolic BP Location Tested BP Systolic [...] weeks. RTC 4 weeks. Flowsheet Date 04/11/2025 Gloria Score Blood Edema [...] Type Weight in lbs Pre/Post Dialysis Refused 130.638189304692 BP Diastolic BP Location Tested BP Systolic [...]
--- OUTSIDE RECORDS SUMMARY | 2025-04-12 20:47 | XMS_ITS | Continuity of Care Document ---
Author Organization [facility] Address [address] [place] [address] Assessment No assessment recorded. Plan of Treatment [...] Resul ting Lab: [facility] [address] [facility] [address] Tel: CULTU RE ----- ----- ----- --- No growt h in 1 day (dete ction level of 10,00 0 colon ies / ml.) Not Available [facility] (Lab) [address] [facility], [place], [address], 01/24/2025 11:24:05 01/19/20 25 01/18/2025 IMAGE GUIDE [...] as clini vicki warra nted. Not Available [facility] (Lab) [address] [facility] [address] [facility], [place], [address], 01/24/2025 11:24:06 01/19/20 25 01/18/2025 US, obste tric, nucha l trans lucen cy No observ ation record ed. [email or web address] [place] [address] [facility] [address], [place], [address], 01/18/2025 18:02:50 01/19/20 25 01/18/2025 US, obste tric, nucha l trans lucen cy No observ ation record ed. [email or web address] [facility] [address], [place], [address], 01/21/2025 01:48:00 03/15/20 25 03/15/2025 US, obste tric, 2nd or 3rd trime ster No observ ation record ed. [email or web address] [place] [address], [place], [address], 03/15/2025 17:55:23 03/15/20 25 03/15/2025 US, obste tric, 2nd or 3rd trime ster No observ ation record ed. ZACH [facility] [address], [place], [address], 03/19/2025 15:50:02 04/11/20 25 04/11/2025 US, obste tric, follo w-up No observ ation record ed. [email or web address] [facility] [address], [place], [address], 04/12/2025 13:39:34 04/11/20 25 04/11/2025 US, obste tric, follo w-up No observ ation record ed. [facility] [address], [place], [address], 04/11/2025 18:07:01 Result Notes None recorded. Problems Name Problem SNOMED Code Status Onset Date Resolution Date Notes Provider Name and Address Organization Details Recorded Time 75120220 Active 2024 Yvonne vernon, [facility] 16:35:50 Abnormal placenta affecting management of mother 32775276 Active 2024 serial growth US q4 weeks ALEJANDRO VILLASENOR MD [address], [place], [address], [facility] 17:11:51 growth restriction 57811431 Active 2024 Ubaldo Hauser MD [address], [place], [address], [facility] 16:32:09 Hypertensive disorder 26694511 Active 2024 Ubaldo Hauser MD [address], [place], [address], [facility] 16:32:19 Problem Notes None recorded. Procedures Surgical History Date Name Laterality Status Provider Name and Address Organization Details Recorded Time 01/18/2025 Date of Last Pap Smear completed Yvonne Hitchcock [facility] 01/18/2025 17:03:21 Imaging Results None recorded. [...] and Address Organization Details Last Updated DateTime 03/15/2025 161.29 cm 21.4 kg/m2 18655.86 g 125/107 mm[Hg] 143/92 mm[Hg] JUSTYN LÓPEZ [facility] 17:28:58 Social History Question Answer Notes LastModified by Organizat ion Details LastModified Time Tobacco Smoking Status Former Smoker Yvonne Olmosdavid [facility], [facility] 01/18/2025 16:34:32 Do You Have An Advance Directive? No [email or web address] Information n ot available 12/07/2024 If You Are , What Was Your Level Of Alcohol Consumption Prior To ? None Information not available 12/07/2024 How Many Years Have You Consumed Alcohol? 6 [email or web address] Information not available 12/07/2024 Are You Blind Or Do You Have Difficulty Seeing? No [email or web address] Information n ot available 12/07/2024 What Is Your Level Of Caffeine Consumption? Heavy Information not available 12/07/2024 In The 14 Days Before Symptom Onset, Have You Had Close Contact With A Laboratory-confirm ed COVID-19 While That Case Was Ill? No [email or web address] Information n ot available 12/07/2024 In The [...] Do You Have Serious Difficulty Hearing? No [email or web address] Information not available 12/07/2024 What Type Of Diet Are You Following? REGULAR [email or web address] Information n ot available 12/07/2024 What Is The Highest Grade Or Level Of School You Have Completed Or The Highest Degree You Have Received? HE47729-1 Information not available 12/07/2024 Are There Any Guns Present In Your Home? No Information not available 12/07/2024 What Is Your Current Pack Years? 10packyears oqvnsd73 Information not available 12/07/2024 Have You Ever Been Counseled For Unhealthy Alcohol Use? No [email or web address] Information not available 12/07/2024 Do You Use Protection During Sex? No [email or web address] Information not available 12/07/2024 Do You Use Your Seat Belt Or Car Seat Routinely? Yes Information not available 12/07/2024 Are You Sexually Active? Yes [email or web address] Information not available 12/07/2024 Do You Have Smoke And Carbon Monoxide Detectors In Your Home? Yes [email or web address] Information not available 12/07/2024 At What Age Did You Start Smoking Tobacco? 20 Information not available 12/07/2024 How Much Tobacco Do You Smoke? 1 PPW [email or web address] Information not available 12/07/2024 Do You Use Sunscreen Routinely? Yes [email or web address] Information not available 12/07/2024 Has Tobacco Cessation Counseling Been Provided? No [email or web address] Information not available 12/07/2024 Have You Used IV Drugs? No [email or web address] Information not available 12/07/2024 Do You Have Difficulty Walking Or Climbing Stairs? No Information not available 12/07/2024 Sex: Unknown Functional Status Question Answer Note LastModified by Organizat ion Details LastModified Time Do you use any illicit or recreational drugs? No [email or web address] Information not available 12/07/2024 Do you or have you ever used any other forms of tobacco or nicotine? Yes Information not available 12/07/2024 What is your level of alcohol consumption? Occasional stopped while [email or web address] Information not available 01/18/2025 Do you or have you ever used smokeless tobacco? Never used smokeless tobacco Information not available 12/07/2024 Are you currently employed? Yes [email or web address] Information not available 12/07/2024 Are you able to walk independently without assistance or assistive devices? YESWOREST [email or web address] Information not available 12/07/2024 Are you able to care for yourself independently? 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 No [email or web address] Information not available 12/07/2024 Do you or have you ever used e-cigarettes or vape? Former user of electronic cigarettes [email or web address] Information not available 01/18/2025 What is your exercise level? Moderate aartvi25 Information not available 12/07/2024 Mental Status Question Answer Note LastModified by Organization D etails LastModified Time Do you feel stressed (tense, restless, nervous, or anxious, or unable to sleep at night)? [id number] [email or web address] Information not available 12/07/2024 Family History Relationship Description Onset Age of this Age Resolved Age Notes LastModified by Organization Details LastModified Time Mother Heart disease [email or web address] Not available 2024 14:25:05 Medical History Condition [...] ICD10 Code Diagnosis IMO Codes Diagnosis Note [id number] ALEJANDRO VILLASNEOR MD [place] [address] [address] 02/15/2025 16:47:46 02/15/2025 17:54:08 Second trimester 72344174 Z34.02 57934750 [id number] ALEJANDRO VILLASENOR MD [place] [address],[place] [address] 03/15/2025 15:52:26 03/15/2025 17:09:11 screening for malformation 479455633 Z36.3 Z3A.20 6559032404 [id number] ALEJANDRO VILLASENOR MD [place] [address] [address] 03/15/2025 15:52:46 03/21/2025 09:16:41 Abnormal placenta affecting management of mother 80573905 O43.199 62590971 - serial growth US q4 weeks Gestation period, 20 weeks 18208241 Z3A.20 9395559 - continue [facility] Health Concerns Section Related Observation LastModified by Organization Detai ls LastModified Time None Recorded Concern Status LastModified by Organization Details LastModified Time None Recorded Payers Encounter Date Sequence Insurance Name Policy Number Policy Vargas Covered Member ID Vargas Member ID Guarantor Name 03/15/2025 1 [employer] [id number] Isabella Riazmadhav [id number] Isabella Raines Notes Date Note Type Note Provider Name and Address Organization Details Recorded Time 03/15/2025 text/html Generic HPI TemplateReported by Patient ALEJANDRO VILLASENOR MD [address], [place], [address], [facility] 03/18/2025 17:12:24 OBGyn Episode Ob Episode Information Episode Created Date Number of Fetuses Patient Bloodtype Patient rh Status Prepregnancy Weight lbs Domestic Partner Domestic Partner Phone Father Name Vp Customer Service Status 01/19/20 25 1 O Positive Delfino Raines OPEN Fetus Data First Name Last Name Admitted to NICU Weight (g) Sex Living Outcome Pediatric Complications Fetus ID Race Codes Race Delivery Type [id number] Problems Problem Notes [facility] referral faxed 04/12 Problem Name Start Date End Date Resolution Snomed Code Not e Abnormal placenta affecting management of mother 03/18/2025 88621368 serial growth U S q4 weeks Hypertensive disorder 04/11/2025 1890701 3 growth restriction 04/11/2025 [address] [...] Sound Latest Days Gestation 03/15/20 25 20 [email or web address] 01/21/2025 08/02/19 26 1 Pre- Flowsheet Flowsheet Date 01/18/2025 Gloria Score Blood Edema Fundus Height Fundus Units Glucose Ketones Leukocytes Nitrite Labor Signs Protein Cervic Dilation Cervic Effacement Cervic Station Type Weight in lbs Pre/Post Dialysis Refused Weight 113.553573149723 BP Diastolic BP Location Tested BP Systolic BP Type 83 L arm 135 sitting Fetus Heart Rate Present A Present Fetus Movement Comments Patient presents to [facility] care. otherwise uncomplicated. No nausea or cramping. NT/NB wnl today, LR NIPT. New OB labs wnl. RTC 4 weeks for routine care. Flowsheet Date 02/15/2025 Gloria Score Blood Edema Fundus Height Fundus Units Glucose Ketones Leukocytes Nitrite Labor Signs Protein Cervic Dilation Cervic Effacement Cervic Station Type Weight in lbs Pre/Post Dialysis Refused Weight 120.224478034592 BP Diastolic BP Location Tested BP Systolic [...] Weight in lbs Pre/Post Dialysis Refused Weight 123.213052592587 BP Diastolic BP Location Tested BP Systolic [...] Type Weight in lbs Pre/Post Dialysis Refused 130.688506864652 BP Diastolic BP Location Tested BP Systolic [...]
--- OUTSIDE RECORDS SUMMARY | 2025-04-12 20:47 | XMS_ITS | Continuity of Care Document ---
Author Organization [facility] Address [address] [place] [address] [place] [address] Assessment No assessment recorded. Plan of Treatment Reminders Order Date Submit Date Provider Last Modified By Organization Details Last Modified Time Details Appointments None record ed. Lab None record ed. Referral None record ed. Procedures None record ed. Surgeries None record ed. Imaging US, obstet devendra, follow -up 025 04/11/20 25 [email or web address] [place], [facility] [address], [place], [address], 22:41:50 Medication Orders None record ed. Patient TargetsNo targets recorded. Patient InstructionsNo instructions recorded. Reason for Referral None Reported. Results Created Date Observation Date Name Description Value Unit Range Abnormal Flag Note LastModifiedBy Organization Detail LastModifiedTime 01/19/20 25 01/18/2025 CULTU RE: URINE result report SEE RESULT S BELOW Test: Cultu re: Urine Speci men Sourc e: Urine - Clean Catch Speci men Type: Urine Speci men Date: 2024 1628 Resul t Date: 2024 0504 Resul t Statu s: Final resul t Abnor mal: No Resul ting Lab: [facility] [address] [facility] [address] Tel: CULTU RE ----- ----- ----- --- No growt h in 1 day (dete ction level of 10,00 0 colon ies / ml.) Not Available [facility] (Lab) [address] [facility], [place], [address], 01/24/2025 11:24:05 01/19/20 25 01/18/2025 IMAGE GUIDE [...] OSIS: Negat evon for Intra epith elial Lesio n or Lily louise ([facility]) . Elect ursula gill by Sarah Fuentes [...] as clini vicki warra nted. Not Available [facility] (Lab) [address], [place], [address], 01/24/2025 11:24:06 01/19/20 25 01/18/2025 US, obste tric, nucha l trans lucen cy No observ ation record ed. [email or web address] [place] [address], [place], [address], 01/18/2025 18:02:50 01/19/20 25 01/18/2025 US, obste tric, nucha l trans lucen cy No observ ation record ed. [email or web address] [address], [place], [address], 01/21/2025 01:48:00 03/15/20 25 03/15/2025 US, obste tric, 2nd or 3rd trime ster No observ ation record ed. [email or web address] [place] [address], [place], [address], 03/15/2025 17:55:23 03/15/2003/15/2025 US, obste tric, 2nd or 3rd trime ster No observ ation record ed. ZACH [address], [place], [address], 03/19/2025 15:50:02 04/11/20 25 04/11/2025 US, obste tric, follo w-up No observ ation record ed. [email or web address] Ting [address], [place], [address], 04/12/2025 13:39:34 04/11/20 25 04/11/2025 US, obste tric, follo w-up No observ ation record ed. [email or web address] [address], [place], [address], 04/11/2025 18:07:01 Result Notes None recorded. Problems Name Problem SNOMED Code Status Onset Date Resolution Date Notes Provider Name and Address Organization Details Recorded Time 24478357 Active 2024 Yvonne vernon, [facility] 16:35:50 Abnormal placenta affecting management of mother 66919182 Active 2024 serial growth US q4 weeks ALEJANDRO VILLASENOR MD [address], [place], [address], [facility] 17:11:51 growth restriction 27979504 Active 2024 Ubaldo Hauser MD [address], [place], [address], [facility] 16:32:09 Hypertensive disorder 18067275 Active 2024 Ubaldo Hauser MD [address], [place], [address], [facility] 16:32:19 Problem Notes None recorded. Procedures Surgical History Date Name Laterality Status Provider Name and Address Organization Details Recorded Time 01/18/2025 Date of Last Pap Smear completed Yvonne Hitchcock [facility] 01/18/2025 17:03:21 Imaging Results None recorded. [...] Not Avai lable Vitals Date Recorded Body weight Systolic And Diastolic Systolic And Diastolic Systolic And Diastolic Provider Name and Address Organization Details Last Updated DateTime 04/11/2025 95654.00 81 g 164/116 mm[Hg] 164/105 mm[Hg] 158/98 mm[Hg] Sarah Cr [facility] 04/11/2025 15:21:21 Social History Question Answer Notes LastModified by Organizat ion Details LastModified Time Tobacco Smoking Status Former Smoker Yvonne Hitchcock [facility] 01/18/2025 16:34:32 Do You Have An Advance Directive? No [email or web address] Information n ot available 12/07/2024 If You Are , What Was Your Level Of Alcohol Consumption Prior To ? None [email or web address] Information not available 12/07/2024 How Many Years Have You Consumed Alcohol? 6 Information not available 12/07/2024 Are You Blind Or Do You Have Difficulty Seeing? No [email or web address] Information n ot available 12/07/2024 What Is Your Level Of Caffeine Consumption? Heavy Information not available 12/07/2024 In The 14 Days Before Symptom Onset, Have You Had Close Contact With A Laboratory-confirm ed COVID-19 While That Case Was Ill? No [email or web address] Information n ot available 12/07/2024 In The 14 Days Before Symptom Onset, Have You Had Close Contact With A Person Who Is Under Investigation For COVID-19 While That Person Was Ill? No [email or web address] Information not available 12/07/2024 Have You Been To An Area Known To Be High Risk For COVID-19? No Information not available 12/07/2024 Are You Deaf Or Do You Have Serious Difficulty Hearing? No [email or web address] Information not available 12/07/2024 What Type Of Diet Are You Following? REGULAR [email or web address] Information n ot available 12/07/2024 What Is The Highest Grade Or Level Of School You Have Completed Or The Highest Degree You Have Received? TR74418-8 [email or web address] Information not available 12/07/2024 Are There Any Guns Present In Your Home? No Information not available 12/07/2024 What Is Your Current Pack Years? 10packyears [email or web address] Information not available 12/07/2024 Have You Ever Been Counseled For Unhealthy Alcohol Use? No [email or web address] Information not available 12/07/2024 Do You Use Protection During Sex? No Information not available 12/07/2024 Do You Use Your Seat Belt Or Car Seat Routinely? Yes [email or web address] Information not available 12/07/2024 Are You Sexually Active? Yes Information not available 12/07/2024 Do You Have Smoke And Carbon Monoxide Detectors In Your Home? Yes Information not available 12/07/2024 At What Age Did You Start Smoking Tobacco? 20 [email or web address] Information not available 12/07/2024 How Much Tobacco Do You Smoke? 1 PPW [email or web address] Information not available 12/07/2024 Do You Use Sunscreen Routinely? Yes [email or web address] Information not available 12/07/2024 Has Tobacco Cessation Counseling Been Provided? No Information not available 12/07/2024 Have You Used IV Drugs? No [email or web address] Information not available 12/07/2024 Do You Have Difficulty Walking Or Climbing Stairs? No [email or web address] Information not available 12/07/2024 Sex: Unknown Functional Status Question Answer Note LastModified by Organizat ion Details LastModified Time Do you use any illicit or recreational drugs? No [email or web address] Information not available 12/07/2024 Do you or have you ever used any other forms of tobacco or nicotine? Yes [email or web address] Information not available 12/07/2024 What is your level of alcohol consumption? Occasional stopped while [email or web address] Information not available 01/18/2025 Do you or have you ever used smokeless tobacco? Never used smokeless tobacco [email or web address] Information not available 12/07/2024 Are you currently employed? Yes [email or web address] Information not available 12/07/2024 Are you able to walk independently without assistance or assistive devices? YESWOREST [email or web address] Information not available 12/07/2024 Are you able to care for yourself independently? 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 No [email or web address] Information not available 12/07/2024 Do you or have you ever used e-cigarettes or vape? Former user of electronic cigarettes [email or web address] Information not available 01/18/2025 What is your exercise level? Moderate [email or web address] Information not available 12/07/2024 Mental Status Question Answer Note LastModified by Organization D etails LastModified Time Do you feel stressed (tense, restless, nervous, or anxious, or unable to sleep at night)? [id number] [email or web address] Information not available 12/07/2024 Family History Relationship Description Onset Age of this Age Resolved Age Notes LastModified by Organization Details LastModified Time Mother Heart disease [email or web address] Not available 2024 14:25:05 Medical History Condition [...] ICD10 Code Diagnosis IMO Codes Diagnosis Note [id number] ALEJANDRO VILLASENOR MD [place] [address],[place] [address] 03/15/2025 15:52:26 03/15/2025 17:09:11 screening for malformation 743339455 Z36.3 Z3A.20 [id number] ALEJANDRO VILLASENOR MD [place] [address],[place] [address] 03/15/2025 15:52:46 03/21/2025 09:16:41 Abnormal placenta affecting management of mother 34349934 O43.199 76705385 - serial growth US q4 weeks Gestation period, 20 weeks 31247198 Z3A.20 3776794 - continue PNV [id number] Ubaldo Hauser MD [place] [address],[place] [address] 04/11/2025 13:50:28 04/11/2025 15:09:57 Abnormal placenta affecting management of mother 22065234 O43.192 Z3A.24 95266672 [id number] Ubaldo Hauser MD [place] [address],[place] [address] 04/11/2025 13:51:09 04/11/2025 16:37:02 Second trimester 45994203 Z34.02 [id number] Health Concerns Section Related Observation LastModified by Organization Detai ls LastModified Time None Recorded Concern Status LastModified by Organization Details LastModified Time None Recorded Payers Encounter Date Sequence Insurance Name Policy Number Policy Vargas Covered Member ID Vargas Member ID Guarantor Name 04/11/2025 1 [place] [id number] Isabella Raines [id number] Isabella Raines Notes Date Note Type Note Provider Name and Address Organization Details Recorded Time 04/11/2025 text/html Generic HPI TemplateReported by Patient Ubaldo Hauser MD [address], [place], [address], [facility] 04/11/2025 16:33:08 OBGyn Episode Ob Episode Information Episode Created Date Number of Fetuses Patient Bloodtype Patient rh Status Prepregnancy Weight lbs Domestic Partner Domestic Partner Phone Father Name Pipe Out Worker Status 01/19/20 25 1 O Positive Delfino Raines OPEN Fetus Data First Name Last Name Admitted to NICU Weight (g) Sex Living Outcome Pediatric Complications Fetus ID Race Codes Race Delivery Type [id number] Problems Problem Notes [facility] referral faxed 04/12 Problem Name Start Date End Date Resolution Snomed Code Not e Abnormal placenta affecting management of mother 03/18/2025 45882562 serial growth U S q4 weeks Hypertensive disorder 04/11/2025 2083256 3 growth restriction 04/11/2025 [address] [...] Sound Latest Days Gestation 03/15/20 25 20 [email or web address] 01/21/2025 08/02/19 26 1 Pre- Flowsheet Flowsheet Date 01/18/2025 Gloria Score Blood Edema Fundus Height Fundus Units Glucose Ketones Leukocytes Nitrite Labor Signs Protein Cervic Dilation Cervic Effacement Cervic Station Type Weight in lbs Pre/Post Dialysis Refused Weight 113.307926839606 BP Diastolic BP Location Tested BP Systolic BP Type 83 L arm 135 sitting Fetus Heart Rate Present A Present Fetus Movement Comments Patient presents to [facility] care. otherwise uncomplicated. No nausea or cramping. NT/NB wnl today, LR NIPT. New OB labs wnl. RTC 4 weeks for routine care. Flowsheet Date 02/15/2025 Gloria Score Blood Edema Fundus Height Fundus Units Glucose Ketones Leukocytes Nitrite Labor Signs Protein Cervic Dilation Cervic Effacement Cervic Station Type Weight in lbs Pre/Post Dialysis Refused Weight 120.866163546046 BP Diastolic BP Location Tested BP Systolic [...] Weight in lbs Pre/Post Dialysis Refused Weight 123.329705679506 BP Diastolic BP Location Tested BP Systolic [...] Type Weight in lbs Pre/Post Dialysis Refused 130.102125147448 BP Diastolic BP Location Tested BP Systolic [...]
--- OUTSIDE RECORDS SUMMARY | 2025-04-12 20:47 | XMS_ITS | Patient Health Record ---
Author Organization [facility] As [facility] Address [address] [place] [address] Care Team Providers Care Pharmacy Operations Specialist Name Role Phone Anna Cutler Unavailable [phone] Allergies No Known Allergies Results Component Value [...] Active Immunizations Vaccine Route Administration Date Status Comme nts COVID-19 (SARS-COV-2) vaccin e, unspecified Unknown 04/06/2021 Administered [employer] Covid-19 Vac cine 2nd dose Unknown 08/31/2020 Administered [employer] Covid-19 Vac cine 2nd dose Unknown 09/21/2020 Administered Social History Tobacco Use: Social History Observation Description Date Details (start date - stop date) Former Smoker NA - NA Sex Assigned At : Social History Observation Description Sex Assigned At Female Social History Miscellaneous: Social Info Question Answer Notes Advance Care Planning Are you your own decision-maker Yes Do you have Power of Supervisor [employer] [facility] or [facility] yoshi? No Safety issues: Do you feel [...] Details Miscellaneous: Occupation: career counse rafael at [employer] Social History Migrated Social History Alcohol Intake: [...] Master's degree (e.g., MA, MS, Kanika, MEd, [employer], [place]) Are you currently employed?: Yes Who is your employer?: [employer] Marriage and Sexuality What is your relationship status?: Domestic partner Are you sexually active?: Yes Do you use protection during sex?: No How many children do you have?: 0 Home and Environment Are you a caregiver?: No What type of child development professor do you use?: None Do you have [...] Do you have a medical power of document review attorney?: No Public Health and Travel Have you [...] Master's degree (e.g., MA, MS, Kanika, MEd, W[employer]S INSTALLER, [employer]) Are you currently employed?: Yes Who [...] Do you have a medical power of document review attorney?: No Activities of Daily Living Are you able to care for yourself?: Yes Gender Identity and LGBTQ Identity Gender identity: Identifies as Female Assigned sex at : Female Pronouns: she/her First name used: Isabella Sexual orientation: Straight or heterosexual Problems Problem Type SNOMED Code ICD Code Onset Dates Problem Status W/U Status Risk Notes Problem Recurrent major depression in full remission (41906020) Major depressive disorder, recurrent, in full remission (F33.42) Active confirmed Problem Generalized anxiety disorder (24941246) Generalized anxiety disorder (F41.1) 4 Active confirmed Problem Insomnia disorder related to another mental disorder (28781757) Insomnia due to other mental disorder (F51.05) 4 Active confirmed Problem Obsessive-compul sive disorder (915271331) Obsessive-compu lsive disorder, unspecified (F42.9) 4 Active confirmed Problem 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) Marijuana use (F12.90) Active confirmed Problem Tobacco use (513867990) Nicotine use (Z72.0) Active confirmed Problem Second trimester (20810440) Second trimester (Z34.92) Active confirmed Vital Signs Heart Rate 83 /min 01/10/2025 Height-cm 160.02 cm 03/30/2025 Blood pressure diastolic 78 mm Hg 03/30/2025 Weight-kg 55.79 kg 03/30/2025 Height 63 in 03/30/2025 Blood pressure systolic 128 mm Hg 03/30/2025 Weight 123 lbs 03/30/2025 BMI 21.79 kg/m2 03/30/2025 Encounters Encounter Location Date Provider Diagnosis [facility] [employer] [place] [address] [address] [facility] [address] [address] 05/31/2024 Anna Cutler Obsessive-compulsive disorder, unspecified F42.9 ; Major depressive disorder, recurrent, in full remission F33.42 ; Generalized anxiety disorder F41.1 and Insomnia due to other mental disorder F51.05 [facility] [employer] [facility] [address] [address] 08/23/2024 Anna Cutler [facility] [employer] [place] [address] [address] 08/30/2024 Anna Cutler Generalized anxiety disorder F41.1 ; Obsessive-compulsive disorder, unspecified F42.9 ; Major depressive disorder, recurrent, in full remission F33.42 ; Insomnia due to other mental disorder F51.05 ; Marijuana use F12.90 ; Nicotine use Z72.0 ; Negative depression screening Z13.31 and Encounter for screening for cardiovascular disorders Z13.6 [facility] [employer] [facility] [address] [place] [address] 11/22/2024 Annasundeep Guerrerojagjit Generalized anxiety disorder F41.1 ; Major depressive disorder, recurrent, in full remission F33.42 ; Obsessive-compulsive disorder, unspecified F42.9 ; Less than 8 weeks gestation of Z3A.01 and Insomnia due to other mental disorder F51.05 [facility] [employer] [facility] [address] [place] [address] 12/20/2024 Anna Cesarjagjit [facility] [employer] [facility] [address] [place] [address] 01/10/2025 Anna Cutler Major depressive disorder, recurrent, in full remission F33.42 ; Obsessive-compulsive disorder, unspecified F42.9 ; Insomnia due to other mental disorder F51.05 ; Generalized anxiety disorder F41.1 and First trimester Z34.91 [facility] [employer] [facility] [address] [place] [address] 03/30/2025 Annasundeep Guerrerojagjit Major depressive disorder, recurrent, in full remission F33.42 ; Obsessive-compulsive disorder, unspecified F42.9 ; Generalized anxiety disorder F41.1 ; Second trimester Z34.92 and Insomnia due to other mental disorder F51.05 Assessments Encounter Date Diagnosis (ICD Code) Assessment Notes Treatment Notes Treatment Clinical Notes Section Notes 08/30/2024 Generalized anxiety disorder (ICD-10 - F41.1) [...] Obsessive-compuls evon disorder, unspecified (ICD-10 - F42.9) 05/31/2024 Obsessive-compuls evon disorder, unspecified (ICD-10 - [...] in 3-4 months, sooner if concerns arise 03/30/2025 Generalized anxiety disorder (ICD-10 - F41.1) 11/22/2024 Obsessive-compuls evon disorder, unspecified (ICD-10 - F42.9) 08/30/2024 Major depressive disorder, recurrent, in full remission (ICD-10 - F33.42) 01/10/2025 Insomnia due to other mental disorder (ICD-10 - F51.05) 05/31/2024 Major depressive disorder, recurrent, in full [...] 8 weeks gestation of (ICD-10 - Z3A.01) 03/30/2025 Second trimester (ICD-10 - Z34.92) 01/10/2025 Generalized anxiety disorder (ICD-10 - F41.1) 01/10/2025 First trimester (ICD-10 - Z34.91) 03/30/2025 Insomnia due to other mental disorder (ICD-10 - F51.05) 11/22/2024 Insomnia due to other mental disorder [...] supply with 2 refills prescribed to [facility] Major depressive disorder in remissionAssessme nt: Patient [...] AM, [address], [address], [place], [address], Insurance Providers Payer Name Payer Address Payer Phone Subscriber Number Group Number Insured Name Patient Relationship to Insured Coverage Start Date Coverage End Date [facility] Ppo [address] [place] [address] [id number] ISABELLA CHRISTIAN Self - patient is the insured Medical (General) History Medical History History ICD Code Problems: Generalized anxiety disorder Insomnia disorder related to another men cecilia disorder Major Depressive Disorder Obsessive-compulsive disorder Smoker
--- OUTSIDE RECORDS SUMMARY | 2025-04-12 20:47 | XMS_ITS | Continuity of Care Document ---
Author Organization [facility] Address [address] [place] [address] [place] [address] Assessment No assessment recorded. Plan of Treatment Reminders Order Date Submit Date Provider Last Modified By Organization Details Last Modified Time Details Appointments None recorded. Lab None recorded. Referral None recorded. Procedures None recorded. Surgeries None recorded. Imaging US, obstetric, nuchal translucenc y 2024 [address]25 [email or web address] [facility] [address], [place], [address], 09:41:25 Medication Orders None recorded. Patient TargetsNo targets [...] t Abnor mal: No Resul ting Lab: [facility] [address] [facility] [address] Tel: CULTU RE ----- ----- ----- --- No growt h in 1 day (dete ction level of 10,00 0 colon ies / ml.) Not Available [facility] (Lab) [address] [facility] [place], [address], 01/24/2025 11:24:05 01/19/20 25 01/18/2025 IMAGE GUIDE D PAP, REFLE X HPV IF ASCUS ONLY image guided Pap, reflex HPV ASCUS only SEE RESULT S BELOW CASE REPOR T: Cytol ogy Gynec ologi yoshi Repor t Case: [id number] Autho bev barry Provi trang: Karolina [...] OSIS: Negat evon for Intra epith elial Lesyoshi serrano or Lily louise ([facility]) . Elect ursula nichols d by Sarah [...] as clini vicki warra nted. Not Available [facility] (Lab) [address] [facility], [place], [address], 01/24/2025 11:24:06 01/19/20 25 01/18/2025 US, obste tric, nucha l trans lucen cy No observ ation record ed. [email or web address] Wesley [address], [place], [address], 01/18/2025 18:02:50 01/19/20 25 01/18/2025 US, obste tric, nucha l trans lucen cy No observ ation record ed. [email or web address] Ting [address], [place], [address], 01/21/2025 01:48:00 03/15/20 25 03/15/2025 US, obste tric, 2nd or 3rd trime ster No observ ation record ed. [email or web address] Wesley [address], [place], [address], 03/15/2025 17:55:23 03/15/20 25 03/15/2025 US, obste tric, 2nd or 3rd trime ster No observ ation record ed. ZACH Ting [address], [place], [address], 03/19/2025 15:50:02 04/11/20 25 04/11/2025 US, obste tric, follo w-up No observ ation record ed. [email or web address] Ting [address], [place], [address], 04/12/2025 13:39:34 04/11/20 25 04/11/2025 US, obste tric, follo w-up No observ ation record ed. [email or web address] [facility] [address], [place], [address], 04/11/2025 18:07:01 Result Notes None recorded. Problems Name Problem SNOMED Code Status Onset Date Resolution Date Notes Provider Name and Address Organization Details Recorded Time 05989779 Active 2024 Yvonne vernon, [facility] 16:35:50 Abnormal placenta affecting management of mother 85634538 Active 2024 serial growth US q4 weeks ALEJANDRO VILLASENOR MD [address], [place], [address], [facility] 17:11:51 growth restriction 94799413 Active 2024 Ubaldo Hauser MD [address], [place], [address], [facility] 16:32:09 Hypertensive disorder 58957837 Active 2024 Ubaldo Hauser MD [address], [place], [address], [facility] 16:32:19 Problem Notes None recorded. Procedures Surgical History Date Name Laterality Status Provider Name and Address Organization Details Recorded Time 01/18/2025 Date of Last Pap Smear completed Yvonne Hitchcock [facility] 01/18/2025 17:03:21 Imaging Results None recorded. [...] Updated DateTime 01/18/2025 161.29 cm 19.7 kg/m2 48935.94 g 135/83 mm[Hg] Yvonne Hitchcock [facility] 01/18/2025 16:31:53 Social History Question Answer Notes LastModified by Organizat ion Details LastModified Time Tobacco Smoking Status Former Smoker Yvonne Hitchcock [facility] 01/18/2025 16:34:32 Do You Have An Advance Directive? No [email or web address] Information n ot available 12/07/2024 If You Are , What Was Your Level Of Alcohol Consumption Prior To ? None [email or web address] Information not available 12/07/2024 How Many Years Have You Consumed Alcohol? 6 [email or web address] Information not available 12/07/2024 Are You Blind Or Do You Have Difficulty Seeing? No [email or web address] Information n ot available 12/07/2024 What Is Your Level Of Caffeine Consumption? Heavy Information not available 12/07/2024 In The 14 Days Before Symptom Onset, Have You Had Close Contact With A Laboratory-confirm ed COVID-19 While That Case Was Ill? No [email or web address] Information n ot available 12/07/2024 In The 14 Days Before Symptom Onset, Have You Had Close Contact With A Person Who Is Under Investigation For COVID-19 While That Person Was Ill? No Information not available 12/07/2024 Have You Been To An Area Known To Be High Risk For COVID-19? No [email or web address] Information not available 12/07/2024 Are You Deaf Or Do You Have Serious Difficulty Hearing? No [email or web address] Information not available 12/07/2024 What Type Of Diet Are You Following? REGULAR [email or web address] Information n ot available 12/07/2024 What Is The Highest Grade Or Level Of School You Have Completed Or The Highest Degree You Have Received? AW29912-2 [email or web address] Information not available 12/07/2024 Are There Any Guns Present In Your Home? No [email or web address] Information not available 12/07/2024 What Is Your Current Pack Years? 10packyears [email or web address] Information not available 12/07/2024 Have You Ever Been Counseled For Unhealthy Alcohol Use? No [email or web address] Information not available 12/07/2024 Do You Use Protection During Sex? No [email or web address] Information not available 12/07/2024 Do You Use Your Seat Belt Or Car Seat Routinely? Yes [email or web address] Information not available 12/07/2024 Are You Sexually Active? Yes [email or web address] Information not available 12/07/2024 Do You Have Smoke And Carbon Monoxide Detectors In Your Home? Yes [email or web address] Information not available 12/07/2024 At What Age Did You Start Smoking Tobacco? 20 [email or web address] Information not available 12/07/2024 How Much Tobacco Do You Smoke? 1 PPW [email or web address] Information not available 12/07/2024 Do You Use Sunscreen Routinely? Yes Information not available 12/07/2024 Has Tobacco Cessation Counseling Been Provided? No [email or web address] Information not available 12/07/2024 Have You Used IV Drugs? No [email or web address] Information not available 12/07/2024 Do You Have Difficulty Walking Or Climbing Stairs? No [email or web address] Information not available 12/07/2024 Sex: Unknown Functional Status Question Answer Note LastModified by Organizat ion Details LastModified Time Do you use any illicit or recreational drugs? No [email or web address] Information not available 12/07/2024 Do you or have you ever used any other forms of tobacco or nicotine? Yes [email or web address] Information not available 12/07/2024 What is your level of alcohol consumption? Occasional stopped while [email or web address] Information not available 01/18/2025 Do you or have you ever used smokeless tobacco? Never used smokeless tobacco Information not available 12/07/2024 Are you currently employed? Yes [email or web address] Information not available 12/07/2024 Are you able to walk independently without assistance or assistive devices? YESWOREST [email or web address] Information not available 12/07/2024 Are you able to care for yourself independently? 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 No [email or web address] Information not available 12/07/2024 Do you or have you ever used e-cigarettes or vape? Former user of electronic cigarettes [email or web address] Information not available 01/18/2025 What is your exercise level? Moderate [email or web address] Information not available 12/07/2024 Mental Status Question Answer Note LastModified by Organization D etails LastModified Time Do you feel stressed (tense, restless, nervous, or anxious, or unable to sleep at night)? [id number] [email or web address] Information not available 12/07/2024 Family History Relationship Description Onset Age of this Age Resolved Age Notes LastModified by Organization Details LastModified Time Mother Heart disease [email or web address] Not available 2024 14:25:05 Medical History Condition [...] ICD10 Code Diagnosis IMO Codes Diagnosis Note [id number] ALEJANDRO VILLASENOR MD [facility] [address] [address] 01/18/2025 15:49:57 01/18/2025 16:32:46 screening 541379096 Z36.82 Z3A.12 [id number] ALEJANDRO VILLASENOR MD [facility] [address] [address] 01/18/2025 15:50:09 01/21/2025 08:55:16 Gynecologic examination 77508494 Z01.419 s reyna of fetus 70932668 Z34.90 [id number] Health Concerns Section Related Observation LastModified by Organization Detai ls LastModified Time None Recorded Concern Status LastModified by Organization Details LastModified Time None Recorded Payers Encounter Date Sequence Insurance Name Policy Number Policy Vargas Covered Member ID Vargas Member ID Guarantor Name 01/18/2025 1 [employer] [id number] Isabella Raines [id number] Isabella Raines OBGyn Episode Ob Episode Information Episode Created Date Number of Fetuses Patient Bloodtype Patient rh Status Prepregnancy Weight lbs Domestic Partner Domestic Partner Phone Father Name Marine Underwriter Status 01/19/20 25 1 O Positive Delfino Olu OPEN Fetus Data First Name Last Name Admitted to NICU Weight (g) Sex Living Outcome Pediatric Complications Fetus ID Race Codes Race Delivery Type [id number] Problems Problem Notes [facility] referral faxed 04/12 Problem Name Start Date End Date Resolution Snomed Code Not e Abnormal placenta affecting management of mother 03/18/2025 00704810 serial growth U S q4 weeks Hypertensive disorder 04/11/2025 0182578 3 growth restriction 04/11/2025 [address] [...] Weight in lbs Pre/Post Dialysis Refused Weight 113.861559330294 BP Diastolic BP Location Tested BP Systolic BP Type 83 L arm 135 sitting Fetus Heart Rate Present A Present Fetus Movement Comments Patient presents to [facility] care. otherwise uncomplicated. No nausea or cramping. NT/NB wnl today, LR NIPT. New OB labs wnl. RTC 4 weeks for routine care. Flowsheet Date 02/15/2025 Gloria Score Blood Edema Fundus Height Fundus Units Glucose Ketones Leukocytes Nitrite Labor Signs Protein Cervic Dilation Cervic Effacement Cervic Station Type Weight in lbs Pre/Post Dialysis Refused Weight 120.018263107425 BP Diastolic BP Location Tested BP Systolic [...] Weight in lbs Pre/Post Dialysis Refused Weight 123.786940864594 BP Diastolic BP Location Tested BP Systolic [...] Type Weight in lbs Pre/Post Dialysis Refused 130.101242753948 BP Diastolic BP Location Tested BP Systolic [...]
--- OUTSIDE RECORDS SUMMARY | 2025-04-12 20:48 | XMS_ITS | Data Portability ---
Author Organization [facility] [place] Address [address] [place] [place] [address] Assessment Encounter Date Assessment Date Assessment LastModified by Organization Details LastModified Time 04/11/2025 04/11/2025 Patient is ___weeks . Discussed plan. [email or web address] Not available 04/11/2025 15:19:56 Plan of Treatment Reminders Order Date Submit Date Provider Last Modified By Organization Details Last Modified Time Details Appointments None recorded. Lab None recorded. Referral None recorded. Procedures None recorded. Surgeries None recorded. Imaging US, obstetric, follow-up 2024 025 [email or web address] [place], [address], [place], [address], 22:41:50 US, obstetric, 2nd or 3rd trimester 2024 025 [email or web address] 6 [place] [facility] [address], [place], [address], 17:46:22 Medication Orders None recorded. Patient TargetsNo targets [...] t Abnor mal: No Resul ting Lab: [facility] [address] [facility] [address] Tel: [phone] CULTU RE ----- ----- ----- --- No growt h in 1 day (dete ction level of 10,00 0 colon ies / ml.) Not Available [facility] (Lab) [address], [place], [address], 01/24/2025 11:24:05 01/19/20 25 01/18/2025 IMAGE GUIDE D PAP, REFLE X HPV IF ASCUS ONLY image guided Pap, reflex HPV ASCUS only SEE RESULT S BELOW CASE REPOR T: Cytol ogy Gynec ologi yoshi Repor t Case: [id number] Autho rilandon g Provi trang: Karolina Cates MD Colle cted: 01/18 1628 Order ing Locat ion: [place] Patho log[facility] Recei nighat: 01/19 1117 First Scree n: Sarah Fuentes , CT Speci men: Scremelody marie Pap - Image d, Cervi x STATE MENT OF ADEQU ACY: Satis facto ry for evalu ation Trans forma tion zone compo nent prese nt ----- ----- ----- ----- ----- ----- ----- ----- ----- ----- ----- ----- ----- ----- ----- ----- ----- ---- FINAL DIAGN OSIS: Negat evon for Intra epith marina serrano or Lily louise ([facility]) . Fouzia nichols d by Sarah Fuentes , CT [...] is recom ekta d, as clini vicki warrneil nted. Not Available [facility] (Lab) [address], [place], [address], 01/24/2025 11:24:06 01/19/2001/18/2025 US, obste tric, nucha l trans lucen cy No observ ation record ed. [email or web address] [place] [address], [place], [address], 01/18/2025 18:02:50 01/19/2001/18/2025 US, obste tric, nucha l trans lucen cy No observ ation record ed. [email or web address] [place] [address], [place], [address], 01/21/2025 01:48:00 03/15/20 25 03/15/2025 US, obste tric, 2nd or 3rd trime ster No observ ation record ed. [email or web address] [place] [address], [place], [address], 03/15/2025 17:55:23 03/15/20 25 03/15/2025 US, obste tric, 2nd or 3rd trime ster No observ ation record ed. ZACH [place] [address], [place], [address], 03/19/2025 15:50:02 04/11/20 25 04/11/2025 US, obste tric, follo w-up No observ ation record ed. [email or web address] [place] [address], [place], [address], 04/12/2025 13:39:34 04/11/20 25 04/11/2025 US, obste tric, follo w-up No observ ation record ed. [email or web address] [place] [address], [place], [address], 04/11/2025 18:07:01 Result Notes None recorded. Problems Name Problem SNOMED Code Status Onset Date Resolution Date Notes Provider Name and Address Organization Details Recorded Time 35645767 Active 2024 Yvonne vernon, [facility] 16:35:50 Abnormal placenta affecting management of mother 63662642 Active 2024 serial growth US q4 weeks ALEJANDRO VILLASENOR MD [address], [place], [address], [facility] 17:11:51 growth restriction 36062385 Active 2024 Ubaldo Hauser MD [address], [place], [address], [facility] 16:32:09 Hypertensive disorder 72084811 Active 2024 Ubaldo Hauser MD [address], [place], [address], [facility] 16:32:19 Problem Notes None recorded. Procedures Surgical History Date Name Laterality Status Provider Name and Address Organization Details Recorded Time 01/18/2025 Date of Last Pap Smear completed [facility] 01/18/2025 17:03:21 Imaging Results None recorded. [...] Updated DateTime 02/15/2025 161.29 cm 20.9 kg/m2 84045.08 g 133/97 mm[Hg] 135/89 mm[Hg] Yvonne [facility] 17:19:01 Date Recorded Body height Body mass index (BMI) Body weight Systolic And Diastolic Systolic And Diastolic Provider Name and Address Organization Details Last Updated DateTime 03/15/2025 161.29 cm 21.4 kg/m2 46708.86 g 125/107 mm[Hg] 143/92 mm[Hg] JUSTYN RENE [facility] 17:28:58 Date Recorded Body weight Systolic And Diastolic Systolic And Diastolic Systolic And Diastolic Provider Name and Address Organization Details Last Updated DateTime 04/11/2025 92385.00 81 g 164/116 mm[Hg] 164/105 mm[Hg] 158/98 mm[Hg] Sarah Cr [facility] 04/11/2025 15:21:21 Social History Question Answer Notes LastModified by Organizat ion Details LastModified Time Tobacco Smoking Status Former Smoker Yvonneabbie vernon, [facility] 01/18/2025 16:34:32 Do You Have An Advance Directive? No [email or web address] Information n ot available 12/07/2024 If You Are , What Was Your Level Of Alcohol Consumption Prior To ? None Information not available 12/07/2024 How Many Years Have You Consumed Alcohol? 6 [email or web address] Information not available 12/07/2024 Are You Blind Or Do You Have Difficulty Seeing? No [email or web address] Information n ot available 12/07/2024 What Is Your Level Of Caffeine Consumption? Heavy [email or web address] Information not available 12/07/2024 In The 14 Days Before Symptom Onset, Have You Had Close Contact With A Laboratory-confirm ed COVID-19 While That Case Was Ill? No [email or web address] Information n ot available 12/07/2024 In The 14 Days Before Symptom Onset, Have You Had Close Contact With A Person Who Is Under Investigation For COVID-19 While That Person Was Ill? No [email or web address] Information not available 12/07/2024 Have You Been To An Area Known To Be High Risk For COVID-19? No [email or web address] Information not available 12/07/2024 Are You Deaf Or Do You Have Serious Difficulty Hearing? No [email or web address] Information not available 12/07/2024 What Type Of Diet Are You Following? REGULAR [email or web address] Information n ot available 12/07/2024 What Is The Highest Grade Or Level Of School You Have Completed Or The Highest Degree You Have Received? [id number] [email or web address] Information not available 12/07/2024 Are There Any Guns Present In Your Home? No Information not available 12/07/2024 What Is Your Current Pack Years? 10packyears [email or web address] Information not available 12/07/2024 Have You Ever Been Counseled For Unhealthy Alcohol Use? No [email or web address] Information not available 12/07/2024 Do You Use Protection During Sex? No [email or web address] Information not available 12/07/2024 Do You Use Your Seat Belt Or Car Seat Routinely? Yes [email or web address] Information not available 12/07/2024 Are You Sexually Active? Yes Information not available 12/07/2024 Do You Have Smoke And Carbon Monoxide Detectors In Your Home? Yes [email or web address] Information not available 12/07/2024 At What Age Did You Start Smoking Tobacco? 20 [email or web address] Information not available 12/07/2024 How Much Tobacco Do You Smoke? 1 PPW [email or web address] Information not available 12/07/2024 Do You Use Sunscreen Routinely? Yes Information not available 12/07/2024 Has Tobacco Cessation Counseling Been Provided? No [email or web address] Information not available 12/07/2024 Have You Used IV Drugs? No [email or web address] Information not available 12/07/2024 Do You Have Difficulty Walking Or Climbing Stairs? No [email or web address] Information not available 12/07/2024 Sex: Unknown Functional Status Question Answer Note LastModified by Organizat ion Details LastModified Time Do you use any illicit or recreational drugs? No [email or web address] Information not available 12/07/2024 Do you or have you ever used any other forms of tobacco or nicotine? Yes [email or web address] Information not available 12/07/2024 What is your level of alcohol consumption? Occasional stopped while [email or web address] Information not available 01/18/2025 Do you or have you ever used smokeless tobacco? Never used smokeless tobacco [email or web address] Information not available 12/07/2024 Are you currently employed? Yes [email or web address] Information not available 12/07/2024 Are you able to walk independently without assistance or assistive devices? YESWOREST [email or web address] Information not available 12/07/2024 Are you able to care for yourself independently? 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 No [email or web address] Information not available 12/07/2024 Do you or have you ever used e-cigarettes or vape? Former user of electronic cigarettes [email or web address] Information not available 01/18/2025 What is your exercise level? Moderate Information not available 12/07/2024 Mental Status Question Answer Note LastModified by Organization D etails LastModified Time Do you feel stressed (tense, restless, nervous, or anxious, or unable to sleep at night)? [id number] [email or web address] Information not available 12/07/2024 Family History Relationship Description Onset Age of this Age Resolved Age Notes LastModified by Organization Details LastModified Time Mother Heart disease [email or web address] Not available 2024 14:25:05 Medical History Condition [...] ICD10 Code Diagnosis IMO Codes Diagnosis Note [id number] MD Nelson [place] [address] [address] 12/07/2024 13:23:50 12/07/2024 14:14:09 Uterine size for dates discrepancy 672810083 O26.841 Z3A.01 3730190 [id number] MD Nelson [place] [address] [address] 12/07/2024 13:24:50 12/07/2024 15:04:10 test positive 455460117 Z32.01 466955 screening 2437 49564 Z36.89 Genetic in vestigation procedure 07079146 Z31.430 807071 MD Nelson R[place] [address] [address] 01/18/2025 15:49:57 01/18/2025 16:32:46 screening 178096583 Z36.82 Z3A.12 1475287821 [id number] MD Nelson R[place] [address],[place] [address] 01/18/2025 15:50:09 01/21/2025 08:55:16 Gynecologic examination 59229261 Z01.419 s reyna of fetus 82778628 Z34.90 9574083860 [id number] MD Nelson [place] [address] [address] 02/15/2025 16:47:46 02/15/2025 17:54:08 Second trimester 61551594 Z34.02 23758940 [id number] MD Portia [place] [address] [address] 03/15/2025 15:52:26 03/15/2025 17:09:11 screening for malformation 846988159 Z36.3 Z3A.20 3202244232 [id number] MD Nelson [place] [address] [address] 03/15/2025 15:52:46 03/21/2025 09:16:41 Abnormal placenta affecting management of mother 27890560 O43.199 45329614 - serial growth US q4 weeks Gestation period, 20 weeks 21622207 Z3A.20 7713744 - continue PNV [id number] MD Nelson [place] [address] [place] [address] 04/11/2025 13:50:28 04/11/2025 15:09:57 Abnormal placenta affecting management of mother 18284857 O43.192 Z3A.24 50650719 [id number] MD Nelson Flores [address] [address] 04/11/2025 13:51:09 04/11/2025 16:37:02 Second trimester 64552920 Z34.02 [id number] Health Concerns Section Related Observation LastModified by Organization Detai ls LastModified Time None Recorded Concern Status LastModified by Organization Details LastModified Time None Recorded Advance Directives Directive N: Payers Insurance Date Sequence Insurance Name Policy Number Policy Vargas Covered Member ID Vargas Member ID Guarantor Name 04/11/2025 1 [place] [id number] Isabella Raines [id number] Isabella Raines Notes Date Note Type Note Provider Name and Address Organization Details Recorded Time 02/15/2025 text/html Generic HPI TemplateReported by Patient ALEJANDRO VILLASENOR MD [address], [place], [address], [facility] 02/15/2025 17:43:41 03/15/2025 text/html Generic HPI TemplateReported by Patient ALEJANDRO VILLASENOR MD [address], [place], [address], [facility] 03/18/2025 17:12:24 04/11/2025 text/html Generic HPI TemplateReported by Patient Ubaldo Hauser MD [address], [place], [address], [facility] 04/11/2025 16:33:08 OBGyn Episode Ob Episode Information Episode Created Date Number of Fetuses Patient Bloodtype Patient rh Status Prepregnancy Weight lbs Domestic Partner Domestic Partner Phone Father Name [employer] Analyst Status 01/19/20 25 1 O Positive Delfino Raines OPEN Fetus Data First Name Last Name Admitted to NICU Weight (g) Sex Living Outcome Pediatric Complications Fetus ID Race Codes Race Delivery Type [id number] Problems Problem Notes [facility] referral faxed 04/12 Problem Name Start Date End Date Resolution Snomed Code Not e Abnormal placenta affecting management of mother 03/18/2025 21430738 serial growth U S q4 weeks Hypertensive disorder 04/11/2025 6135827 3 growth restriction 04/11/2025 [address] [...] Sound Latest Days Gestation 03/15/20 25 20 [email or web address] 01/21/2025 08/02/19 26 1 Pre- Flowsheet Flowsheet Date 01/18/2025 Gloria Score Blood Edema Fundus Height Fundus Units Glucose Ketones Leukocytes Nitrite Labor Signs Protein Cervic Dilation Cervic Effacement Cervic Station Type Weight in lbs Pre/Post Dialysis Refused Weight 113.271533504299 BP Diastolic BP Location Tested BP Systolic BP Type 83 L arm 135 sitting Fetus Heart Rate Present A Present Fetus Movement Comments Patient presents to [facility] care. otherwise uncomplicated. No nausea or cramping. NT/NB wnl today, LR NIPT. New OB labs wnl. RTC 4 weeks for routine care. Flowsheet Date 02/15/2025 Gloria Score Blood Edema Fundus Height Fundus Units Glucose Ketones Leukocytes Nitrite Labor Signs Protein Cervic Dilation Cervic Effacement Cervic Station Type Weight in lbs Pre/Post Dialysis Refused Weight 120.960124326186 BP Diastolic BP Location Tested BP Systolic [...] Weight in lbs Pre/Post Dialysis Refused Weight 123.805647697897 BP Diastolic BP Location Tested BP Systolic [...] Type Weight in lbs Pre/Post Dialysis Refused 130.427755006910 BP Diastolic BP Location Tested BP Systolic [...]
--- OUTSIDE RECORDS SUMMARY | 2025-04-12 20:48 | XMS_ITS | Continuity of Care Document ---
Author Organization [facility] Address [address] [place] [address] Assessment Encounter Date Assessment Date Assessment LastModified [...] t Abnor mal: No Resul ting Lab: [facility] [address] [facility] [address] Tel: CULTU RE ----- ----- ----- --- No growt h in 1 day (dete ction level of 10,00 0 colon ies / ml.) Not Available [facility] (Lab) [address], [place], [address], 01/24/2025 11:24:05 01/19/20 25 01/18/2025 IMAGE GUIDE [...] epith elial Gilles serrano or Lily louise ([facility]) . Elect ursula blum simone d by Sarah Fuentes , CT on [...] as clini vicki warra nted. Not Available [facility] (Lab) [address] [facility], [place], [address], 01/24/2025 11:24:06 01/19/20 25 01/18/2025 US, obste tric, nucha l trans lucen cy No observ ation record ed. [email or web address] [place] [address], [place], [address], 01/18/2025 18:02:50 01/19/20 25 01/18/2025 US, obste tric, nucha l trans lucen cy No observ ation record ed. [email or web address] [address], [place], [address], 01/21/2025 01:48:00 03/15/20 25 03/15/2025 US, obste tric, 2nd or 3rd trime ster No observ ation record ed. [email or web address] [place] [address], [place], [address], 03/15/2025 17:55:23 03/15/20 25 03/15/2025 US, obste tric, 2nd or 3rd trime ster No observ ation record ed. [email or web address] T[facility] [address], [place], [address], 03/19/2025 15:50:02 04/11/20 25 04/11/2025 US, obste tric, follo w-up No observ ation record ed. [email or web address] [address], [place], [address], 04/12/2025 13:39:34 04/11/20 25 04/11/2025 US, obste tric, follo w-up No observ ation record ed. [facility] [address], [place], [address], 04/11/2025 18:07:01 Result Notes None recorded. Problems Name Problem SNOMED Code Status Onset Date Resolution Date Notes Provider Name and Address Organization Details Recorded Time 74043975 Active 2024 Yvonne vernon, [facility] 16:35:50 Abnormal placenta affecting management of mother 34539903 Active 2024 serial growth US q4 weeks ALEJANDRO VILLASENOR MD [address], [place], [address], [facility] 17:11:51 growth restriction 67448525 Active 2024 Ubaldo Hauser MD [address], [place], [address], [facility] 16:32:09 Hypertensive disorder 96055237 Active 2024 Ubaldo Hauser MD [address], [place], [address], [facility] 16:32:19 Problem Notes None recorded. Procedures Surgical History Date Name Laterality Status Provider Name and Address Organization Details Recorded Time 01/18/2025 Date of Last Pap Smear completed Yvonne Hitchcock [facility] 01/18/2025 17:03:21 Imaging Results None recorded. [...] Address Organization Details Last Updated DateTime 04/11/2025 93770.00 81 g 164/116 mm[Hg] 164/105 mm[Hg] 158/98 mm[Hg] Sarah Atkinsoner [facility] 04/11/2025 15:21:21 Social History Question Answer Notes LastModified by Organizat ion Details LastModified Time Tobacco Smoking Status Former Smoker [facility] 01/18/2025 16:34:32 Do You Have An Advance Directive? No Information n ot available 12/07/2024 If You Are , What Was Your Level Of Alcohol Consumption Prior To ? None Information not available 12/07/2024 How Many Years Have You Consumed Alcohol? 6 [email or web address] Information not available 12/07/2024 Are You Blind Or Do You Have Difficulty Seeing? No [email or web address] Information n ot available 12/07/2024 What Is Your Level Of Caffeine Consumption? Heavy Information not available 12/07/2024 In The 14 Days Before Symptom Onset, Have You Had Close Contact With A Laboratory-confirm ed COVID-19 While That Case Was Ill? No [email or web address] Information n ot available 12/07/2024 In The 14 Days Before Symptom Onset, Have You Had Close Contact With A Person Who Is Under Investigation For COVID-19 While That Person Was Ill? No [email or web address] Information not available 12/07/2024 Have You Been To An Area Known To Be High Risk For COVID-19? No [email or web address] Information not available 12/07/2024 Are You Deaf Or Do You Have Serious Difficulty Hearing? No [email or web address] Information not available 12/07/2024 What Type Of Diet Are You Following? REGULAR [email or web address] Information n ot available 12/07/2024 What Is The Highest Grade Or Level Of School You Have Completed Or The Highest Degree You Have Received? [id number] Information not available 12/07/2024 Are There Any Guns Present In Your Home? No [email or web address] Information not available 12/07/2024 What Is Your Current Pack Years? [email or web address] Information not available 12/07/2024 Have You Ever Been Counseled For Unhealthy Alcohol Use? No [email or web address] Information not available 12/07/2024 Do You Use Protection During Sex? No [email or web address] Information not available 12/07/2024 Do You Use Your Seat Belt Or Car Seat Routinely? Yes Information not available 12/07/2024 Are You Sexually Active? Yes [email or web address] Information not available 12/07/2024 Do You Have Smoke And Carbon Monoxide Detectors In Your Home? Yes Information not available 12/07/2024 At What Age Did You Start Smoking Tobacco? 20 Information not available 12/07/2024 How Much Tobacco Do You Smoke? 1 PPW [email or web address] Information not available 12/07/2024 Do You Use Sunscreen Routinely? Yes [email or web address] Information not available 12/07/2024 Has Tobacco Cessation Counseling Been Provided? No [email or web address] Information not available 12/07/2024 Have You Used IV Drugs? No [email or web address] Information not available 12/07/2024 Do You Have Difficulty Walking Or Climbing Stairs? No [email or web address] Information not available 12/07/2024 Sex: Unknown Functional Status Question Answer Note LastModified by Organizat ion Details LastModified Time Do you use any illicit or recreational drugs? No Information not available 12/07/2024 Do you or have you ever used any other forms of tobacco or nicotine? Yes [email or web address] Information not available 12/07/2024 What is your level of alcohol consumption? Occasional stopped while [email or web address] Information not available 01/18/2025 Do you or have you ever used smokeless tobacco? Never used smokeless tobacco [email or web address] Information not available 12/07/2024 Are you currently employed? Yes Information not available 12/07/2024 Are you able to walk independently without assistance or assistive devices? YESWOREST [email or web address] Information not available 12/07/2024 Are you able to care for yourself independently? 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 No [email or web address] Information not available 12/07/2024 Do you or have you ever used e-cigarettes or vape? Former user of electronic cigarettes [email or web address] Information not available 01/18/2025 What is your exercise level? Moderate [email or web address] Information not available 12/07/2024 Mental Status Question Answer Note LastModified by Organization D etails LastModified Time Do you feel stressed (tense, restless, nervous, or anxious, or unable to sleep at night)? [id number] [email or web address] Information not available 12/07/2024 Family History Relationship Description Onset Age of this Age Resolved Age Notes LastModified by Organization Details LastModified Time Mother Heart disease [email or web address] Not available 2024 14:25:05 Medical History Condition [...] ICD10 Code Diagnosis IMO Codes Diagnosis Note [id number] ALEJANDRO VILLASENOR MD [place] [address],[place] [address] 03/15/2025 15:52:26 03/15/2025 17:09:11 screening for malformation 334083388 Z36.3 Z3A.20 [id number] ALEJANDRO VILLASENOR MD [place] [address] [address] 03/15/2025 15:52:46 03/21/2025 09:16:41 Abnormal placenta affecting management of mother 08031619 O43.199 90525688 - serial growth US q4 weeks Gestation period, 20 weeks 29550083 Z3A.20 2806637 - continue PNV [id number] Ubaldo Hauser MD [place] [address],[place] [address] 04/11/2025 13:50:28 04/11/2025 15:09:57 Abnormal placenta affecting management of mother 23503709 O43.192 Z3A.24 41203757 [id number] Ubaldo Hauser MD [place] [address],[place] [address] 04/11/2025 13:51:09 04/11/2025 16:37:02 Second trimester 98494043 Z34.02 [id number] Health Concerns Section Related Observation LastModified by Organization Detai ls LastModified Time None Recorded Concern Status LastModified by Organization Details LastModified Time None Recorded Payers Encounter Date Sequence Insurance Name Policy Number Policy Vargas Covered Member ID Vargas Member ID Guarantor Name 04/11/2025 1 [facility] ([facility] [id number] Isabella Raines [id number] Isabella Raines Notes Date Note Type Note Provider Name and Address Organization Details Recorded Time 04/11/2025 text/html Generic HPI TemplateReported by Patient Ubaldo Hauser MD [address], [place], [address], [place] [facility] 04/11/2025 16:33:08 OBGyn Episode Ob Episode Information Episode Created Date Number of Fetuses Patient Bloodtype Patient rh Status Prepregnancy Weight lbs Domestic Partner Domestic Partner Phone Father Name Gambling Counsellor Status 01/19/20 25 1 O Positive Delfino Raines OPEN Fetus Data First Name Last Name Admitted to NICU Weight (g) Sex Living Outcome Pediatric Complications Fetus ID Race Codes Race Delivery Type [id number] Problems Problem Notes [facility] referral faxed 04/12 Problem Name Start Date End Date Resolution Snomed Code Not e Abnormal placenta affecting management of mother 03/18/2025 47010535 serial growth U S q4 weeks Hypertensive disorder 04/11/2025 9444694 3 growth restriction 04/11/2025 2203 3007 West Calculation Initial Wets Date Initial Exam Date Initial Exam Provider Initial Ultrasound Date Last Menstrual Period Date Ultra Sound Weeks Gestation 01/18/2025 12/07/2024 10/04/2024 6 Eighteen To Twenty Week West Update Ultra Sound Date Fundal Height At Umbil Quickening Date Ultra Sound Latest Weeks Gestation Final West Confirmed By Final West Confirmed Date Final West Date Ultra Sound Latest Days Gestation 03/15/20 25 20 [email or web address] 01/21/2025 08/02/19 26 1 Pre- Flowsheet Flowsheet Date 01/18/2025 Gloria Score Blood Edema Fundus Height Fundus Units Glucose Ketones Leukocytes Nitrite Labor Signs Protein Cervic Dilation Cervic Effacement Cervic Station Type Weight in lbs Pre/Post Dialysis Refused Weight 113.321510295495 BP Diastolic BP Location Tested BP Systolic BP Type 83 L arm 135 sitting Fetus Heart Rate Present A Present Fetus Movement Comments Patient presents to [facility] care. otherwise uncomplicated. No nausea or cramping. NT/NB wnl today, LR NIPT. New OB labs wnl. RTC 4 weeks for routine care. Flowsheet Date 02/15/2025 Gloria Score Blood Edema Fundus Height Fundus Units Glucose Ketones Leukocytes Nitrite Labor Signs Protein Cervic Dilation Cervic Effacement Cervic Station Type Weight in lbs Pre/Post Dialysis Refused Weight 120.059187112595 BP Diastolic BP Location Tested BP Systolic [...] Weight in lbs Pre/Post Dialysis Refused Weight 123.717649559213 BP Diastolic BP Location Tested BP Systolic [...] Type Weight in lbs Pre/Post Dialysis Refused 130.257008056634 BP Diastolic BP Location Tested BP Systolic [...]
[2025-04-12 21:14] LABS: Total Volume 24 Hour Urine 1600 ml
[2025-04-12 21:22] LABS: Creatinine Clearance Urine 193.3 ml/min (75-125); Serum Creat 0.52; Total Protein Urine 24 Hr 192 mg/24hr (28-141); Total Protein Urine Random 12 mg/dL
== END 2025-04-12 20:36 | disposition home or self-care (01) ==
LOC: ANHOBOP 20:45
PROVIDERS: Visit Provider Obstetrics & Gynecology
DX: O13.9 Gestational [pregnancy-induced] hypertension without significant proteinuria, unspecified trimester (principal); Z3A.00 Weeks of gestation of pregnancy not specified
CPT/HCPCS: 81050; 82575; 84156